=== PATIENT | male | born 1950 | race Caucasian/White ===

== ENCOUNTER 2018-10-12 13:34 | Inpatient (IN) | payer OTHER ==
[2018-10-12 16:15] VITALS: BMI 23.8
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
[2018-10-12] MEDS ORDERED: chlordiazePOXIDE HCL 25 MG CAPSULE PO PRN (17:18)
[2018-10-12] MEDS ORDERED: ALBUTEROL SO4 8 GM HFA INHALER IH PRN (17:20)
[2018-10-12] MEDS ORDERED: P-EPHED 60MG/TRIPROLIDI 2.5MG TABLET PO PRN (17:22)
[2018-10-12] MEDS ORDERED: hydrOXYzine PAMOATE 25 MG CAPSULE (FP) PO PRN (17:22)
[2018-10-12] MEDS ORDERED: ACETAMINOPHEN 325 MG TABLET (FP) PO PRN (17:22)
[2018-10-12] MEDS ORDERED: MAG HYDROX/AL HYDROX/SIMETH 30 ML UNIT-DOSE CUP PO PRN (17:22)
[2018-10-12] MEDS ORDERED: MAGNESIUM CITRATE 300 ML BOTTLE PO PRN (17:22)
[2018-10-12] MEDS ORDERED: LOPERAMIDE HCL 2 MG CAPSULE PO PRN (17:22)
[2018-10-12] MEDS ORDERED: MENTHOL/PHENOL 1 EACH UD MM PRN (17:22)
[2018-10-12] MEDS ORDERED: guaiFENesin/D-METHORPHAN HB 10 ML UNIT-DOSE CUPS PO PRN (17:22)
[2018-10-12] MEDS ORDERED: MAGNESIUM HYDROX 2400MG/30ML ORAL SUSPENSION 30 ML CUP PO PRN (17:22)
[2018-10-12] MEDS ORDERED: IBUPROFEN 400 MG TABLET (FP) PO PRN (17:22)
[2018-10-12] MEDS ORDERED: MELATONIN 5 MG TABLETS PO PRN (22:00)
[2018-10-12] MEDS: THIAMINE HCL 100 MG TABLET (FP) PO SCH (22:42)
[2018-10-12] MEDS: chlordiazePOXIDE HCL 25 MG CAPSULE PO SCH (22:43)
[2018-10-13] MEDS: chlordiazePOXIDE HCL 25 MG CAPSULE PO SCH ×3 (06:44→17:34)
[2018-10-13] MEDS: INSULIN SLIDING SCALE (NOVOLOG) 1 VIAL SQ SCH ×3 (06:48→17:08)
--- NOTE | 2018-10-13 10:10 | PN ---
S CIWA - CIWA Score Nausea/Vomitin-Mild Nausea/No Vomiting Muscle Tremors: 3 Anxiety: 2 Agitation: 2 Paroxysmal Sweats: 1-Minimal Palms Moist Orientation: 1-Uncertain about Date Tacttile Disturbances: 0-None Auditory Disturbances: 0-None Visual Disturbances: 0-None Headache: 2-Mild CIWA-Ar Total Score: 12 BHS Progress Note (SOAP) Subjective: tremor sweat restlessness anxiety irritable Objective: 10/13/18 14:32 Vital Signs Temperature 98.6 F 10/13/18 14:04 Pulse Rate 105 H 10/13/18 14:04 Respiratory Rate 18 10/13/18 14:04 Blood Pressure 113/72 10/13/18 14:04 O2 Sat by Pulse Oximetry (%) Laboratory Last Values POC Glucometer 95 UNITS (80-120) 10/13/18 06:45 lab noted Assessment: 10/13/18 14:32 withdrawal sx Plan: continue detox
[2018-10-13] MEDS: PRENATAL VITAMINS W/ FOLIC ACID TABLET (FP) PO SCH (10:56)
--- NOTE | 2018-10-13 18:58 | EKG ---
Test Reason : Blood Pressure : / mmHG Vent. Rate : 093 BPM Atrial Rate : 093 BPM P-R Int : 162 ms QRS Dur : 098 ms QT Int : 380 ms P-R-T Axes : 082 080 086 degrees QTc Int : 472 ms NORMAL SINUS RHYTHM NORMAL ECG NO PREVIOUS ECGS AVAILABLE Confirmed by ANDREW BAILEY, SHANEL ([id number]) on 10/13/2018 6:58:17 PM Referred By: Confirmed By:SHANEL MORALES MD
[2018-10-13] MEDS: THIAMINE HCL 100 MG TABLET (FP) PO SCH (22:41)
[2018-10-13] MEDS: chlordiazePOXIDE 5 MG CAPSULE PO SCH (22:41)
[2018-10-14] MEDS: chlordiazePOXIDE 5 MG CAPSULE PO SCH ×4 (06:34→22:28)
[2018-10-14] MEDS: INSULIN SLIDING SCALE (NOVOLOG) 1 VIAL SQ SCH ×3 (08:00→17:21)
[2018-10-14 10:13] LABS: HEMATOCRIT 42.5 % (35.4-49); HEMOGLOBIN 13.8 GM/dL (11.7-16.9); MCH 30.3 pg (25.7-33.7); MCHC 32.5 g/dl (32.0-35.9); MEAN PLT VOLUME 8.1 fl (7.5-11.1); PLATELET COUNT 299 K/MM3 (134-434); RBC 4.57 M/mm3 (4.00-5.60); RDW 17.1 % (11.9-15.9); WHITE BLOOD COUNT 8.6 K/mm3 (4.0-10.0)
[2018-10-14 10:38] LABS: ALBUMIN 3.3 g/dl (3.4-5.0); ALK PHOS 128 U/L (45-117); ANION GAP 9 MMOL/L (8-16); BILIRUBIN,TOTAL 0.8 mg/dL (0.2-1); BLOOD UREA NITROGEN 8 mg/dL (7-18); CALCIUM 8.5 mg/dL (8.5-10.1); CHLORIDE 99 mmol/L (98-107); CO2 29 mmol/L (21-32); CREATININE 0.7 mg/dL (0.55-1.3); GLUCOSE,RANDOM 114 mg/dL (74-106); POTASSIUM 3.8 mmol/L (3.5-5.1); SGOT/AST 43 U/L (15-37); SGPT/ALT 65 U/L (13-61); SODIUM 138 mmol/L (136-145); TOT PROT 7.1 g/dl (6.4-8.2)
[2018-10-14] MEDS: PRENATAL VITAMINS W/ FOLIC ACID TABLET (FP) PO SCH (11:33)
--- NOTE | 2018-10-14 11:55 | PN ---
S CIWA - CIWA Score Nausea/Vomitin-No Nausea/No Vomiting Muscle Tremors: 2 Anxiety: 2 Agitation: 2 Paroxysmal Sweats: 1-Minimal Palms Moist Orientation: 1-Uncertain about Date Tacttile Disturbances: 0-None Auditory Disturbances: 0-None Visual Disturbances: 0-None Headache: 2-Mild CIWA-Ar Total Score: 10 S Progress Note (SOAP) Subjective: feeling better than yesterday tremor sweat restlessness otherwise feeling ok Objective: 10/14/18 11:53 Vital Signs Temperature 98.5 F 10/14/18 09:26 Pulse Rate 96 H 10/14/18 09:26 Respiratory Rate 20 10/14/18 09:26 Blood Pressure 107/73 10/14/18 09:26 O2 Sat by Pulse Oximetry (%) Laboratory Last Values WBC 8.6 K/mm3 (4.0-10.0) 10/14/18 07:00 RBC 4.57 M/mm3 (4.00-5.60) 10/14/18 07:00 Hgb 13.8 GM/dL (11.7-16.9) 10/14/18 07:00 Hct 42.5 % (35.4-49) 10/14/18 07:00 MCV 93.0 fl (80-96) 10/14/18 07:00 MCH 30.3 pg (25.7-33.7) 10/14/18 07:00 MCHC 32.5 g/dl (32.0-35.9) 10/14/18 07:00 RDW 17.1 % (11.9-15.9) H 10/14/18 07:00 Plt Count 299 K/MM3 (134-434) D 10/14/18 07:00 MPV 8.1 fl (7.5-11.1) 10/14/18 07:00 Sodium 138 mmol/L (136-145) 10/14/18 07:00 Potassium 3.8 mmol/L (3.5-5.1) 10/14/18 07:00 Chloride 99 mmol/L (98-107) 10/14/18 07:00 Carbon Dioxide 29 mmol/L (21-32) 10/14/18 07:00 Anion Gap 9 MMOL/L (8-16) 10/14/18 07:00 BUN 8 mg/dL (7-18) 10/14/18 07:00 Creatinine 0.7 mg/dL (0.55-1.3) 10/14/18 07:00 Creat Clearance w eGFR > 60 (>60) 10/14/18 07:00 POC Glucometer 98 UNITS (80-120) 10/14/18 11:30 Random Glucose 114 mg/dL (74-106) H 10/14/18 07:00 Calcium 8.5 mg/dL (8.5-10.1) 10/14/18 07:00 Total Bilirubin 0.8 mg/dL (0.2-1) 10/14/18 07:00 AST 43 U/L (15-37) H 10/14/18 07:00 ALT 65 U/L (13-61) H 10/14/18 07:00 Alkaline Phosphatase 128 U/L (45-117) H 10/14/18 07:00 Total Protein 7.1 g/dl (6.4-8.2) 10/14/18 07:00 Albumin 3.3 g/dl (3.4-5.0) L 10/14/18 07:00 RPR Titer Nonreactive (NONREACTIVE) 10/14/18 07:00 lab noted 10/14/18 11:54 ua pending Assessment: 10/14/18 11:54 withdrawal sx Plan: continue detox
[2018-10-14] MEDS: THIAMINE HCL 100 MG TABLET (FP) PO SCH (22:28)
[2018-10-15] MEDS: INSULIN SLIDING SCALE (NOVOLOG) 1 VIAL SQ SCH (06:13)
[2018-10-15] MEDS: chlordiazePOXIDE 5 MG CAPSULE PO SCH (06:13)
[2018-10-15 06:34] VITALS: BP 136/84; PULSE 80; TEMP 97.2
--- NOTE | 2018-10-15 08:08 | PN ---
S Progress Note (SOAP) Subjective: alert,irritable,anxious interrupted sleep Objective: 10/15/18 08:07 Vital Signs Temperature 97.2 F L 10/15/18 06:34 Pulse Rate 80 10/15/18 06:34 Respiratory Rate 18 10/15/18 06:34 Blood Pressure 136/84 10/15/18 06:34 O2 Sat by Pulse Oximetry (%) Assessment: 10/15/18 08:08 withdrawal symptom Plan: continue detox
--- NOTE | 2018-10-15 08:11 | PN ---
[facility] Progress Note Note: patient did not want to complete treatment,seen by counselor,stated has to go home to pay the bill, all attempts to convince patient to stray with no avail,chance of relapsing is high,patient signed release ama, advise to go to er if any problem
--- NOTE | 2018-10-15 08:16 | DS ---
[facility] Detox Discharge Summary Admission Date: 10/12/18 Discharge Date: 10/15/18 - History Present History: Alcohol Dependence Additional Comments: patient signed release ama,seen by counselor,has all medications at home,follow up with pmd for medical problem, to er if emergency medical problem Pertinent Past History: asthma cad seizure - Physical Exam Results Vital Signs: Vital Signs Temperature 97.2 F L 10/15/18 06:34 Pulse Rate 80 10/15/18 06:34 Respiratory Rate 18 10/15/18 06:34 Blood Pressure 136/84 10/15/18 06:34 O2 Sat by Pulse Oximetry (%) Pertinent Admission Physical Exam Findings: Vital Signs Temperature 97.2 F L 10/15/18 06:34 Pulse Rate 80 10/15/18 06:34 Respiratory Rate 18 10/15/18 06:34 Blood Pressure 136/84 10/15/18 06:34 O2 Sat by Pulse Oximetry (%) Laboratory Last Values WBC 8.6 K/mm3 (4.0-10.0) 10/14/18 07:00 RBC 4.57 M/mm3 (4.00-5.60) 10/14/18 07:00 Hgb 13.8 GM/dL (11.7-16.9) 10/14/18 07:00 Hct 42.5 % (35.4-49) 10/14/18 07:00 MCV 93.0 fl (80-96) 10/14/18 07:00 MCH 30.3 pg (25.7-33.7) 10/14/18 07:00 MCHC 32.5 g/dl (32.0-35.9) 10/14/18 07:00 RDW 17.1 % (11.9-15.9) H 10/14/18 07:00 Plt Count 299 K/MM3 (134-434) D 10/14/18 07:00 MPV 8.1 fl (7.5-11.1) 10/14/18 07:00 Sodium 138 mmol/L (136-145) 10/14/18 07:00 Potassium 3.8 mmol/L (3.5-5.1) 10/14/18 07:00 Chloride 99 mmol/L (98-107) 10/14/18 07:00 Carbon Dioxide 29 mmol/L (21-32) 10/14/18 07:00 Anion Gap 9 MMOL/L (8-16) 10/14/18 07:00 BUN 8 mg/dL (7-18) 10/14/18 07:00 Creatinine 0.7 mg/dL (0.55-1.3) 10/14/18 07:00 Creat Clearance w eGFR > 60 (>60) 10/14/18 07:00 POC Glucometer 85 UNITS (80-120) 10/15/18 06:10 Random Glucose 114 mg/dL (74-106) H 10/14/18 07:00 Calcium 8.5 mg/dL (8.5-10.1) 10/14/18 07:00 Total Bilirubin 0.8 mg/dL (0.2-1) 10/14/18 07:00 AST 43 U/L (15-37) H 10/14/18 07:00 ALT 65 U/L (13-61) H 10/14/18 07:00 Alkaline Phosphatase 128 U/L (45-117) H 10/14/18 07:00 Total Protein 7.1 g/dl (6.4-8.2) 10/14/18 07:00 Albumin 3.3 g/dl (3.4-5.0) L 10/14/18 07:00 RPR Titer Nonreactive (NONREACTIVE) 10/14/18 07:00 - Treatment Patient has Accepted a Rehab Referral to: declined - Medication Discharge Medications: Ambulatory Orders Insulin (Novolog) [Novolog Flexpen] 0 units SQ BIDAC 10/26/13 Phenobarbital 50 mg PO DAILY 10/26/13 Phenytoin Na Extended [Dilantin -] 50 mg PO BID 10/26/13 Albuterol Sulfate Inhaler - [Ventolin Hfa Inhaler -] 2 inh PO Q4H PRN 10/12/18 - Diagnosis (1) Alcohol dependence with uncomplicated withdrawal Current Visit: Yes Status: Acute (2) Asthma Current Visit: Yes Status: Acute (3) CAD (coronary artery disease) Current Visit: Yes Status: Acute (4) Seizure Current Visit: No Status: Acute (5) Syncope Current Visit: No Status: Acute - AMA Did Patient Leave Against Medical Advice: Yes
[2018-10-15] MEDS ORDERED: chlordiazePOXIDE HCL 10 MG CAPSULE PO SCH ×2 (23:00)
== END 2018-10-15 08:30 | disposition left against medical advice (07) | DRG 770 ==
LOC: YASAS 13:34 → Y3N 19:09
PROC: HZ2ZZZZ Detoxification Services for Substance Abuse Treatment (ICD-10-PCS; principal; 2018-10-12)
DX: F10.230 Alcohol dependence with withdrawal, uncomplicated (principal); F17.210 Nicotine dependence, cigarettes, uncomplicated; J45.909 Unspecified asthma, uncomplicated; I25.10 Atherosclerotic heart disease of native coronary artery without angina pectoris; I25.2 Old myocardial infarction; E11.9 Type 2 diabetes mellitus without complications; Z86.69 Personal history of other diseases of the nervous system and sense organs; Z79.84 Long term (current) use of oral hypoglycemic drugs
CPT/HCPCS: 36415; 80053; 81003; 82962; 85027; 86593; 93005; 93010

== ENCOUNTER 2019-03-24 09:50 | Inpatient (IN) | payer OTHER ==
[2019-03-24 11:05] VITALS: BMI 22.1
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
[2019-03-24] MEDS ORDERED: METHOCARBAMOL 500 MG TABLET PO PRN (14:56)
[2019-03-24] MEDS ORDERED: hydrOXYzine PAMOATE 25 MG CAPSULE (FP) PO PRN (14:56)
[2019-03-24] MEDS ORDERED: MAG HYDROX/AL HYDROX/SIMETH 30 ML UNIT-DOSE CUP PO PRN (14:56)
[2019-03-24] MEDS ORDERED: MAGNESIUM HYDROX 2400MG/30ML ORAL SUSPENSION 30 ML CUP PO PRN (14:56)
[2019-03-24] MEDS ORDERED: MENTHOL/PHENOL 1 EACH UD MM PRN (14:56)
[2019-03-24] MEDS ORDERED: ACETAMINOPHEN 325 MG TABLET (FP) PO PRN ×2 (14:56)
[2019-03-24] MEDS ORDERED: BISMUTH SUBSALICYLATE 262 MG/15 ML BTL PO PRN (14:56)
[2019-03-24] MEDS ORDERED: MELATONIN 5 MG TABLETS PO PRN (14:56)
[2019-03-24] MEDS ORDERED: IBUPROFEN 400 MG TABLET (FP) PO PRN (14:56)
[2019-03-24] MEDS ORDERED: MAGNESIUM CITRATE 300 ML BOTTLE PO PRN (14:56)
[2019-03-24] MEDS ORDERED: chlordiazePOXIDE HCL 25 MG CAPSULE PO PRN (14:56)
[2019-03-24] MEDS: chlordiazePOXIDE HCL 25 MG CAPSULE PO SCH ×2 (16:00→22:57)
[2019-03-24 17:59] LABS: HEMATOCRIT 41.2 % (35.4-49); HEMOGLOBIN 13.7 GM/dL (11.7-16.9); MCH 30.7 pg (25.7-33.7); MCHC 33.2 g/dl (32.0-35.9); MEAN CELL VOLUME 92.3 fl (80-96); MEAN PLT VOLUME 8.1 fl (7.5-11.1); PLATELET COUNT 197 K/MM3 (134-434); RBC 4.46 M/mm3 (4.00-5.60); RDW 15.3 % (11.9-15.9); WHITE BLOOD COUNT 6.2 K/mm3 (4.0-10.0)
[2019-03-24 18:07] LABS: ALBUMIN 3.6 g/dl (3.4-5.0); CALCIUM 8.7 mg/dL (8.5-10.1); CREATININE 0.7 mg/dL (0.55-1.3); POTASSIUM 4.1 mmol/L (3.5-5.1); TOT PROT 7.5 g/dl (6.4-8.2)
[2019-03-24 18:11] LABS: EPI CELLS 1.4 /HPF (0-5/HPF); HYALINE CASTS 29 /lpf (0-8); PH,URINE 5.5 (5.0-8.0); URINE APPEARANCE CLOUDY; URINE BACTERIA 4.6 /hpf (NEGATIVE); URINE BILIRUBIN 2+ (NEGATIVE); URINE COLOR DK YELLOW; URINE GLUCOSE (UA) NEGATIVE (NEGATIVE); URINE KETONE TRACE (NEGATIVE); URINE LEUK ESTERASE 1+ (NEGATIVE); URINE NITRITE POSITIVE (NEGATIVE); URINE PROTEIN TRACE (NEGATIVE); URINE RBC 4 /hpf (0-4); URINE WBC 8 /hpf (0-5)
[2019-03-24 20:56] LABS: URINE CRYSTALS FEW CALCIUM OXALATE /hpf
[2019-03-24] MEDS: THIAMINE HCL 100 MG TABLET (FP) PO SCH (22:57)
[2019-03-24] MEDS: PHENYTOIN NA EXTENDED 100 MG CAPSULE (FP) PO SCH (22:57)
[2019-03-25] MEDS: ALBUTEROL SO4 8 GM HFA INHALER IH PRN ×2 (04:09→10:17)
[2019-03-25] MEDS: PHENYTOIN NA EXTENDED 100 MG CAPSULE (FP) PO SCH ×3 (05:32→22:34)
[2019-03-25] MEDS: chlordiazePOXIDE HCL 25 MG CAPSULE PO SCH ×4 (05:32→22:34)
[2019-03-25] MEDS: PRENATAL VITAMINS W/ FOLIC ACID TABLET (FP) PO SCH (10:16)
--- NOTE | 2019-03-25 14:20 | CONSULT ---
[facility] Psychiatric Consult - Data Date of interview: 03/25/19 Admission source: [facility] Identifying data: Readmission to [facility] for this 68 y/o male self- referred for detoxification (alcohol). Examined at [address] [place] [address]. Patient is , a father of one, domiciled, unemployed and supported on SSI benefits. Substance Abuse History: Confirmed by the patient in this interbview. Details in current [facility] report : Smoking history: Current every day smoker. Have you smoked in the past 12 months: Yes. Aproximately how many cigarettes per day: 2. Cigars Per Day: 0. Hx Chewing Tobacco Use: No. Initiated information on smoking cessation: Yes. 'Breaking Loose' booklet given: 03/24/19. - Substance & Tx. History. Hx Alcohol Use: Yes. Hx Substance Use: Yes. Substance Use Type : Marijuana, Tranquilizers. Hx Substance Use Treatment: Yes ([facility] 10/12/18 to ). - Substances abused. Alcohol. Substance route: Oral. Frequency: Daily. Amount used: 5 pints of vodka,gin,whisky/6 packs of 12 ozs of beer. Age of first use: 8. Date of last use: 03/24/19. Marijuana/Hashish. Substance route: Smoking. Frequency: 1-3 times last 30 days. Amount used: 50$ . Age of first use: 27. Date of last use: 03/21/19 Medical History: Remarkable for bronchial asthma, seizure disorder, diabetes mellitus, antecedent of myocrdial infarction, and history of surgeries ( appendectomy, cervical spine in 2012, excision of right shoulder cyst). Psychiatric History: Patient admits to a history of one psychiatric hospitalization ([facility]). Diagnosed with MDD and paranoid schizophrenia. Mr Woodson indicates that he is prescribed prozac (dose not recalled) and " another medication ". Patient gets his OPD services at the [facility] in [facility]. Denies history of suicide attempts. Physical/Sexual Abuse/Trauma History: Patient denies history of abuse. Additional Comment: Urine drug screen results: THC-Marijuana, BZO- Benzodiazepines. Noted. Mental Status Exam - Mental Status Exam Alert and Oriented to: Time, Place, Person Cognitive Function: Good Patient Appearance: Unkempt, Disheveled Mood: Nervous, Withdrawn, Apprehensive Affect: Mood Congruent, Constricted Patient Behavior: Fatigued, Appropriate, Cooperative Speech Pattern: Clear, Appropriate Voice Loudness: Normal Thought Process: Goal Oriented Thought Disorder: Not Present Hallucinations: Denies Suicidal Ideation: Denies Homicidal Ideation: Denies Insight/Judgement: Poor Sleep: Well Appetite: Good Muscle strength/Tone: Normal Gait/Station: Normal Psychiatric Findings - Problem List ([place] 1, 2,3) (1) Alcohol dependence with uncomplicated withdrawal Status: Acute (2) Cannabis abuse Status: Chronic (3) Nicotine dependence Status: Chronic (4) Paranoid schizophrenia Status: Chronic Comment: As per self-report. - Initial Treatment Plan Initial Treatment Plan: Psychoeducation. Records at [facility] : revisited. Sleep hygiene. AA meetings. MAT options for relapse prevention : discussed with the patient. Observation.
[2019-03-25] MEDS ORDERED: ONDANSETRON *ODT* 4 MG TABLET SL PRN (14:22)
[2019-03-25] MEDS ORDERED: cloNIDine HCL 0.1 MG TABLET PO ONE ×2 (14:26→19:00)
--- NOTE | 2019-03-25 14:28 | PN ---
S CIWA - CIWA Score Nausea/Vomitin Muscle Tremors: 3 Anxiety: 4-Mod. Anxious/Guarded Agitation: 3 Paroxysmal Sweats: No Perspiration Orientation: 0-Oriented Tacttile Disturbances: 0-None Auditory Disturbances: 0-None Visual Disturbances: 1-Very Mild Sensitivity Headache: 3-Moderate CIWA-Ar Total Score: 19 BHS Progress Note (SOAP) Subjective: Vomiting, Diarrhea, H/A, Fatigue, Tremors. Objective: PATIENT A & O X 2 (UNCERTAIN ABOUT CURRENT DAY / DATE). PATIENT OBSERVED AMBULATING ON UNIT UNASSISTED. IN NO ACUTE DISTRESS. 03/25/19 14:25 Vital Signs Temperature 96.8 F L 03/25/19 14:12 Pulse Rate 70 03/25/19 14:12 Respiratory Rate 18 03/25/19 14:12 Blood Pressure 145/86 03/25/19 14:12 O2 Sat by Pulse Oximetry (%) Laboratory Tests 03/24/19 03/24/19 03/24/19 15:00 15:04 15:10 WBC 6.2 RBC 4.46 Hgb 13.7 Hct 41.2 MCV 92.3 MCH 30.7 MCHC 33.2 RDW 15.3 D Plt Count 197 D MPV 8.1 Sodium Potassium Chloride Carbon Dioxide Anion Gap BUN Creatinine Est GFR (CKD-EPI)AfAm Est GFR (CKD-EPI)NonAf POC Glucometer 97 Random Glucose Calcium Total Bilirubin AST ALT Alkaline Phosphatase Total Protein Albumin Urine Color Dk yellow Urine Appearance Cloudy Urine pH 5.5 Ur Specific [place] 1.024 Urine Protein Trace Urine Glucose (UA) Negative Urine Ketones Trace H Urine Blood Negative Urine Nitrite Positive H Urine Bilirubin 2+ H Urine Urobilinogen 2.0 Ur Leukocyte Esterase 1+ H Urine WBC (Auto) 8 Urine RBC (Auto) 4 Urine Casts (Auto) 29 U Pathogenic Cast Auto None seen. U Epithel Cells (Auto) 1.4 Urine Crystals (Auto) Few calcium oxalate Urine Bacteria (Auto) 4.6 Phenytoin RPR Titer 03/24/19 03/24/19 03/24/19 15:10 15:10 15:10 WBC RBC Hgb Hct MCV MCH MCHC RDW Plt Count MPV Sodium 140 Potassium 4.1 Chloride 104 Carbon Dioxide 31 Anion Gap 5 L BUN 10.0 Creatinine 0.7 Est GFR (CKD-EPI)AfAm 113.98 Est GFR (CKD-EPI)NonAf 98.34 POC Glucometer Random Glucose 85 Calcium 8.7 Total Bilirubin 1.0 AST 59 H ALT 63 H Alkaline Phosphatase 105 Total Protein 7.5 Albumin 3.6 Urine Color Urine Appearance Urine pH Ur Specific [place] Urine Protein Urine Glucose (UA) Urine Ketones Urine Blood Urine Nitrite Urine Bilirubin Urine Urobilinogen Ur Leukocyte Esterase Urine WBC (Auto) Urine RBC (Auto) Urine Casts (Auto) U Pathogenic Cast Auto U Epithel Cells (Auto) Urine Crystals (Auto) Urine Bacteria (Auto) Phenytoin < 0.4 L RPR Titer Nonreactive 03/24/19 03/25/19 16:37 07:03 WBC RBC Hgb Hct MCV MCH MCHC RDW Plt Count MPV Sodium Potassium Chloride Carbon Dioxide Anion Gap BUN Creatinine Est GFR (CKD-EPI)AfAm Est GFR (CKD-EPI)NonAf POC Glucometer 107 107 Random Glucose Calcium Total Bilirubin AST ALT Alkaline Phosphatase Total Protein Albumin Urine Color Urine Appearance Urine pH Ur Specific [place] Urine Protein Urine Glucose (UA) Urine Ketones Urine Blood Urine Nitrite Urine Bilirubin Urine Urobilinogen Ur Leukocyte Esterase Urine WBC (Auto) Urine RBC (Auto) Urine Casts (Auto) U Pathogenic Cast Auto U Epithel Cells (Auto) Urine Crystals (Auto) Urine Bacteria (Auto) Phenytoin RPR Titer LABS NOTED. Assessment: 03/25/19 14:28 WITHDRAWAL SYMPTOMS. ELEVATED BLOOD PRESSURE READING. ELEVATED LIVER ENZYMES (AST, ALT). 03/25/19 14:29 Plan: CONTINUE DETOX. INCREASE DAILY PO FLUID / WATER INTAKE. REPEAT UA FOR ADMISSION ABNORMALITIES. CLONIDINE, 0.1 MG PO X 1 DOSE FOR SEVERE WITHDRAWAL SYMPTOMS AND FOR ELEVATED BP ON EARLY AFTERNOON READING.
[2019-03-25] MEDS: THIAMINE HCL 100 MG TABLET (FP) PO SCH (22:34)
[2019-03-26] MEDS: PHENYTOIN NA EXTENDED 100 MG CAPSULE (FP) PO SCH ×3 (05:55→22:20)
[2019-03-26] MEDS: chlordiazePOXIDE HCL 25 MG CAPSULE PO SCH ×2 (05:55→11:23)
[2019-03-26] MEDS: PRENATAL VITAMINS W/ FOLIC ACID TABLET (FP) PO SCH (11:23)
--- NOTE | 2019-03-26 13:07 | PN ---
S CIWA - CIWA Score Nausea/Vomitin-No Nausea/No Vomiting Muscle Tremors: 2 Anxiety: 2 Agitation: 2 Paroxysmal Sweats: 2 Orientation: 0-Oriented Tacttile Disturbances: 0-None Auditory Disturbances: 0-None Visual Disturbances: 0-None Headache: 2-Mild CIWA-Ar Total Score: 10 S Progress Note (SOAP) Subjective: c/o headache, sweats, anxiety, and shakes. Objective: 03/26/19 13:06 Vital Signs 03/26/19 03/26/19 06:27 09:43 Temperature 97.7 F 97.6 F Pulse Rate 77 76 Respiratory 18 18 Rate Blood Pressure 117/67 121/83 Lab Results WBC 6.2 K/mm3 (4.0-10.0) 03/24/19 15:10 RBC 4.46 M/mm3 (4.00-5.60) 03/24/19 15:10 Hgb 13.7 GM/dL (11.7-16.9) 03/24/19 15:10 Hct 41.2 % (35.4-49) 03/24/19 15:10 MCV 92.3 fl (80-96) 03/24/19 15:10 MCHC 33.2 g/dl (32.0-35.9) 03/24/19 15:10 RDW 15.3 % (11.9-15.9) D 03/24/19 15:10 Plt Count 197 K/MM3 (134-434) D 03/24/19 15:10 Sodium 140 mmol/L (136-145) 03/24/19 15:10 Potassium 4.1 mmol/L (3.5-5.1) 03/24/19 15:10 Chloride 104 mmol/L (98-107) 03/24/19 15:10 Carbon Dioxide 31 mmol/L (21-32) 03/24/19 15:10 Anion Gap 5 MMOL/L (8-16) L 03/24/19 15:10 BUN 10.0 mg/dL (7-18) 03/24/19 15:10 Creatinine 0.7 mg/dL (0.55-1.3) 03/24/19 15:10 Random Glucose 85 mg/dL (74-106) 03/24/19 15:10 Calcium 8.7 mg/dL (8.5-10.1) 03/24/19 15:10 Labs noted. Assessment: 03/26/19 13:07 AOX3, in no acute distress Full ROM, ambulating in the unit. Withdrawal symptoms. Plan: continue detox.
[2019-03-26] MEDS ORDERED: chlordiazePOXIDE HCL 10 MG CAPSULE PO PRN (17:00)
[2019-03-26] MEDS: chlordiazePOXIDE HCL 10 MG CAPSULE PO SCH ×2 (17:55→22:20)
[2019-03-26] MEDS: THIAMINE HCL 100 MG TABLET (FP) PO SCH (22:20)
[2019-03-27] MEDS: PHENYTOIN NA EXTENDED 100 MG CAPSULE (FP) PO SCH ×3 (06:08→22:19)
[2019-03-27] MEDS: chlordiazePOXIDE HCL 10 MG CAPSULE PO SCH ×3 (06:10→22:20)
[2019-03-27] MEDS: PRENATAL VITAMINS W/ FOLIC ACID TABLET (FP) PO SCH (10:32)
--- NOTE | 2019-03-27 14:33 | PN ---
S CIWA - CIWA Score Nausea/Vomitin Muscle Tremors: 2 Anxiety: 1-Mildly Anxious Agitation: 1-Slight > Activity Paroxysmal Sweats: 1-Minimal Palms Moist Orientation: 0-Oriented Tacttile Disturbances: 0-None Auditory Disturbances: 1-Very Mild Visual Disturbances: 0-None Headache: 1-Very Mild CIWA-Ar Total Score: 9 BHS Progress Note (SOAP) Subjective: poor sleep, shakiness, anxiety Objective: Vital Signs - 24 hr 03/26/19 03/26/19 03/27/19 18:18 21:53 00:30 Temperature 98.5 F 98.3 F Pulse Rate 84 86 Respiratory 18 18 18 Rate Blood Pressure 114/76 135/80 03/27/19 03/27/19 03/27/19 06:49 09:12 13:16 Temperature 98.2 F 96.8 F L 97.6 F Pulse Rate 68 73 79 Respiratory 18 18 16 Rate Blood Pressure 134/80 122/74 129/79 Laboratory Tests 03/24/19 03/24/19 03/24/19 15:00 15:04 15:10 WBC 6.2 RBC 4.46 Hgb 13.7 Hct 41.2 MCV 92.3 MCH 30.7 MCHC 33.2 RDW 15.3 D Plt Count 197 D MPV 8.1 Sodium Potassium Chloride Carbon Dioxide Anion Gap BUN Creatinine Est GFR (CKD-EPI)AfAm Est GFR (CKD-EPI)NonAf POC Glucometer 97 Random Glucose Calcium Total Bilirubin AST ALT Alkaline Phosphatase Total Protein Albumin Urine Color Dk yellow Urine Appearance Cloudy Urine pH 5.5 Ur Specific [place] 1.024 Urine Protein Trace Urine Glucose (UA) Negative Urine Ketones Trace H Urine Blood Negative Urine Nitrite Positive H Urine Bilirubin 2+ H Urine Urobilinogen 2.0 Ur Leukocyte Esterase 1+ H Urine WBC (Auto) 8 Urine RBC (Auto) 4 Urine Casts (Auto) 29 U Pathogenic Cast Auto None seen. U Epithel Cells (Auto) 1.4 Urine Crystals (Auto) Few calcium oxalate Urine Bacteria (Auto) 4.6 Phenytoin RPR Titer 03/24/19 03/24/19 03/24/19 15:10 15:10 15:10 WBC RBC Hgb Hct MCV MCH MCHC RDW Plt Count MPV Sodium 140 Potassium 4.1 Chloride 104 Carbon Dioxide 31 Anion Gap 5 L BUN 10.0 Creatinine 0.7 Est GFR (CKD-EPI)AfAm 113.98 Est GFR (CKD-EPI)NonAf 98.34 POC Glucometer Random Glucose 85 Calcium 8.7 Total Bilirubin 1.0 AST 59 H ALT 63 H Alkaline Phosphatase 105 Total Protein 7.5 Albumin 3.6 Urine Color Urine Appearance Urine pH Ur Specific [place] Urine Protein Urine Glucose (UA) Urine Ketones Urine Blood Urine Nitrite Urine Bilirubin Urine Urobilinogen Ur Leukocyte Esterase Urine WBC (Auto) Urine RBC (Auto) Urine Casts (Auto) U Pathogenic Cast Auto U Epithel Cells (Auto) Urine Crystals (Auto) Urine Bacteria (Auto) Phenytoin < 0.4 L RPR Titer Nonreactive 03/24/19 03/25/19 03/26/19 16:37 07:03 07:08 WBC RBC Hgb Hct MCV MCH MCHC RDW Plt Count MPV Sodium Potassium Chloride Carbon Dioxide Anion Gap BUN Creatinine Est GFR (CKD-EPI)AfAm Est GFR (CKD-EPI)NonAf POC Glucometer 107 107 92 Random Glucose Calcium Total Bilirubin AST ALT Alkaline Phosphatase Total Protein Albumin Urine Color Urine Appearance Urine pH Ur Specific [place] Urine Protein Urine Glucose (UA) Urine Ketones Urine Blood Urine Nitrite Urine Bilirubin Urine Urobilinogen Ur Leukocyte Esterase Urine WBC (Auto) Urine RBC (Auto) Urine Casts (Auto) U Pathogenic Cast Auto U Epithel Cells (Auto) Urine Crystals (Auto) Urine Bacteria (Auto) Phenytoin RPR Titer 03/26/19 03/27/19 16:52 06:07 WBC RBC Hgb Hct MCV MCH MCHC RDW Plt Count MPV Sodium Potassium Chloride Carbon Dioxide Anion Gap BUN Creatinine Est GFR (CKD-EPI)AfAm Est GFR (CKD-EPI)NonAf POC Glucometer 108 82 Random Glucose Calcium Total Bilirubin AST ALT Alkaline Phosphatase Total Protein Albumin Urine Color Urine Appearance Urine pH Ur Specific [place] Urine Protein Urine Glucose (UA) Urine Ketones Urine Blood Urine Nitrite Urine Bilirubin Urine Urobilinogen Ur Leukocyte Esterase Urine WBC (Auto) Urine RBC (Auto) Urine Casts (Auto) U Pathogenic Cast Auto U Epithel Cells (Auto) Urine Crystals (Auto) Urine Bacteria (Auto) Phenytoin RPR Titer 03/27/19 14:36 ALERT ORIENTED AMBULATORY Assessment: 03/27/19 14:36 WITHDRAWAL UA+ LEUK/NITRATE ASX Plan: REPEAT UA MONITOR VS CONTINUE DETOX PROTOCOL
[2019-03-27] MEDS: THIAMINE HCL 100 MG TABLET (FP) PO SCH (22:19)
[2019-03-27 22:30] LABS: PH,URINE 7.5 (5.0-8.0); URINE APPEARANCE CLEAR; URINE BILIRUBIN NEGATIVE (NEGATIVE); URINE COLOR YELLOW; URINE GLUCOSE (UA) NEGATIVE (NEGATIVE); URINE KETONE NEGATIVE (NEGATIVE); URINE LEUK ESTERASE 1+ (NEGATIVE); URINE NITRITE NEGATIVE (NEGATIVE); URINE PROTEIN NEGATIVE (NEGATIVE)
[2019-03-27 23:03] LABS: URINE RBC 0 /hpf (0-4)
[2019-03-27 23:04] LABS: URINE BACTERIA MODERATE /hpf (NEGATIVE)
[2019-03-28] MEDS: PHENYTOIN NA EXTENDED 100 MG CAPSULE (FP) PO SCH (05:14)
[2019-03-28] MEDS: chlordiazePOXIDE HCL 10 MG CAPSULE PO SCH (05:14)
[2019-03-28 09:42] VITALS: BP 136/80; PULSE 81; TEMP 97
[2019-03-28] MEDS: PRENATAL VITAMINS W/ FOLIC ACID TABLET (FP) PO SCH (10:24)
[2019-03-28] MEDS: ALBUTEROL SO4 8 GM HFA INHALER IH PRN (10:26)
--- NOTE | 2019-03-28 13:28 | DS ---
[facility] Detox Discharge Summary Admission Date: 03/24/19 Discharge Date: 03/28/19 - History Present History: Alcohol Dependence Additional Comments: PATIENT GOING TO [facility] ([facility]) FOR AFTERCARE. PATIENT WAS DISCHARGED FROM DETOX UNIT TO BE TAKEN OVER TO REHAB UNIT IN STABLE MEDICAL CONDITION. Pertinent Past History: Asthma, Paranoid Schizophrenia, History Of Seizures, Coronary Artery Disease, History Of Syncope, Type II DM, HTN, Depression, Nicotine Dependence. - Physical Exam Results Vital Signs: Vital Signs Temperature 97.0 F L 03/28/19 09:41 Pulse Rate 81 03/28/19 09:41 Respiratory Rate 18 03/28/19 09:41 Blood Pressure 136/80 03/28/19 09:41 O2 Sat by Pulse Oximetry (%) Pertinent Admission Physical Exam Findings: WITHDRAWAL SYMPTOMS. Laboratory Tests 03/24/19 03/24/19 03/24/19 15:00 15:04 15:10 WBC 6.2 RBC 4.46 Hgb 13.7 Hct 41.2 MCV 92.3 MCH 30.7 MCHC 33.2 RDW 15.3 D Plt Count 197 D MPV 8.1 Sodium Potassium Chloride Carbon Dioxide Anion Gap BUN Creatinine Est GFR (CKD-EPI)AfAm Est GFR (CKD-EPI)NonAf POC Glucometer 97 Random Glucose Calcium Total Bilirubin AST ALT Alkaline Phosphatase Total Protein Albumin Urine Color Dk yellow Urine Appearance Cloudy Urine pH 5.5 Ur Specific [place] 1.024 Urine Protein Trace Urine Glucose (UA) Negative Urine Ketones Trace H Urine Blood Negative Urine Nitrite Positive H Urine Bilirubin 2+ H Urine Urobilinogen 2.0 Ur Leukocyte Esterase 1+ H Urine WBC (Auto) 8 Urine RBC (Auto) 4 Urine Casts (Auto) 29 U Pathogenic Cast Auto None seen. U Epithel Cells (Auto) 1.4 Urine Crystals (Auto) Few calcium oxalate Urine Bacteria (Auto) 4.6 Phenytoin RPR Titer 03/24/19 03/24/19 03/24/19 15:10 15:10 15:10 WBC RBC Hgb Hct MCV MCH MCHC RDW Plt Count MPV Sodium 140 Potassium 4.1 Chloride 104 Carbon Dioxide 31 Anion Gap 5 L BUN 10.0 Creatinine 0.7 Est GFR (CKD-EPI)AfAm 113.98 Est GFR (CKD-EPI)NonAf 98.34 POC Glucometer Random Glucose 85 Calcium 8.7 Total Bilirubin 1.0 AST 59 H ALT 63 H Alkaline Phosphatase 105 Total Protein 7.5 Albumin 3.6 Urine Color Urine Appearance Urine pH Ur Specific [place] Urine Protein Urine Glucose (UA) Urine Ketones Urine Blood Urine Nitrite Urine Bilirubin Urine Urobilinogen Ur Leukocyte Esterase Urine WBC (Auto) Urine RBC (Auto) Urine Casts (Auto) U Pathogenic Cast Auto U Epithel Cells (Auto) Urine Crystals (Auto) Urine Bacteria (Auto) Phenytoin < 0.4 L RPR Titer Nonreactive 03/24/19 03/25/19 03/26/19 16:37 07:03 07:08 WBC RBC Hgb Hct MCV MCH MCHC RDW Plt Count MPV Sodium Potassium Chloride Carbon Dioxide Anion Gap BUN Creatinine Est GFR (CKD-EPI)AfAm Est GFR (CKD-EPI)NonAf POC Glucometer 107 107 92 Random Glucose Calcium Total Bilirubin AST ALT Alkaline Phosphatase Total Protein Albumin Urine Color Urine Appearance Urine pH Ur Specific [place] Urine Protein Urine Glucose (UA) Urine Ketones Urine Blood Urine Nitrite Urine Bilirubin Urine Urobilinogen Ur Leukocyte Esterase Urine WBC (Auto) Urine RBC (Auto) Urine Casts (Auto) U Pathogenic Cast Auto U Epithel Cells (Auto) Urine Crystals (Auto) Urine Bacteria (Auto) Phenytoin RPR Titer 03/26/19 03/27/19 03/27/19 16:52 06:07 16:00 WBC RBC Hgb Hct MCV MCH MCHC RDW Plt Count MPV Sodium Potassium Chloride Carbon Dioxide Anion Gap BUN Creatinine Est GFR (CKD-EPI)AfAm Est GFR (CKD-EPI)NonAf POC Glucometer 108 82 Random Glucose Calcium Total Bilirubin AST ALT Alkaline Phosphatase Total Protein Albumin Urine Color Yellow Urine Appearance Clear Urine pH 7.5 D Ur Specific [place] 1.017 Urine Protein Negative Urine Glucose (UA) Negative Urine Ketones Negative Urine Blood Negative Urine Nitrite Negative Urine Bilirubin Negative Urine Urobilinogen 1.0 Ur Leukocyte Esterase 1+ H Urine WBC (Auto) 2-5 Urine RBC (Auto) 0 Urine Casts (Auto) None U Pathogenic Cast Auto U Epithel Cells (Auto) None Urine Crystals (Auto) Urine Bacteria (Auto) Moderate Phenytoin RPR Titer 03/27/19 03/28/19 16:42 05:12 WBC RBC Hgb Hct MCV MCH MCHC RDW Plt Count MPV Sodium Potassium Chloride Carbon Dioxide Anion Gap BUN Creatinine Est GFR (CKD-EPI)AfAm Est GFR (CKD-EPI)NonAf POC Glucometer 98 87 Random Glucose Calcium Total Bilirubin AST ALT Alkaline Phosphatase Total Protein Albumin Urine Color Urine Appearance Urine pH Ur Specific [place] Urine Protein Urine Glucose (UA) Urine Ketones Urine Blood Urine Nitrite Urine Bilirubin Urine Urobilinogen Ur Leukocyte Esterase Urine WBC (Auto) Urine RBC (Auto) Urine Casts (Auto) U Pathogenic Cast Auto U Epithel Cells (Auto) Urine Crystals (Auto) Urine Bacteria (Auto) Phenytoin RPR Titer LABS NOTED. - Treatment Hospital Course: Detox Protocol Followed, Detoxed Safely, Responded well, Discharged Condition Good, Rehab Referral Accepted Patient has Accepted a Rehab Referral to: [facility] ([place], [place]). - Medication Discharge Medications: Ambulatory Orders Insulin (Novolog) [Novolog Flexpen -] 0 units SQ BIDAC 10/26/13 Phenobarbital 50 mg PO DAILY 10/26/13 Phenytoin Na Extended [Dilantin -] 50 mg PO BID 10/26/13 Albuterol Sulfate Inhaler - [Ventolin HFA Inhaler -] 2 puff IH Q4H PRN inhaler 10/15/18 - Diagnosis (1) Alcohol dependence with uncomplicated withdrawal Status: Acute (2) Asthma Status: Acute Qualifiers: Asthma severity: unspecified severity Asthma persistence: unspecified Asthma complication type: uncomplicated Qualified Code(s): J45.909 - Unspecified asthma, uncomplicated (3) CAD (coronary artery disease) Status: Acute Qualifiers: Coronary Disease-Associated Artery/Lesion type: unspecified vessel or lesion type [place] vs. transplanted heart: unspecified whether [place] or transplanted heart Associated angina: angina presence unspecified Qualified Code(s): I25.10 - Atherosclerotic heart disease of [place] coronary artery without angina pectoris (4) DM Diabetes mellitus type 2 Status: Chronic (5) Seizure Status: Chronic (6) Syncope Status: Acute (7) Paranoid schizophrenia Status: Chronic - AMA Did Patient Leave Against Medical Advice: No
== END 2019-03-28 13:11 | disposition other institution (70) | DRG 775 ==
LOC: YASAS 09:50 → Y3N 14:56
PROVIDERS: ADMIT Surgery; ATTEND Surgery
PROC: HZ2ZZZZ Detoxification Services for Substance Abuse Treatment (ICD-10-PCS; principal; 2019-03-24)
DX: F10.20 Alcohol dependence, uncomplicated (principal); F12.10 Cannabis abuse, uncomplicated; F17.210 Nicotine dependence, cigarettes, uncomplicated; F20.0 Paranoid schizophrenia; F32.9 Major depressive disorder, single episode, unspecified; I25.10 Atherosclerotic heart disease of native coronary artery without angina pectoris; I10 Essential (primary) hypertension; I25.2 Old myocardial infarction; Z79.4 Long term (current) use of insulin; J45.909 Unspecified asthma, uncomplicated; R55 Syncope and collapse; G40.909 Epilepsy, unspecified, not intractable, without status epilepticus; R94.5 Abnormal results of liver function studies; R82.998 Other abnormal findings in urine
CPT/HCPCS: 36415; 80053; 80185; 81003; 82962; 85027; 86593; J0735

== ENCOUNTER 2019-03-28 13:10 | Inpatient (IN) | payer OTHER ==
[2019-03-28] MEDS ORDERED: MAGNESIUM HYDROX 2400MG/30ML ORAL SUSPENSION 30 ML CUP PO PRN (13:34)
[2019-03-28] MEDS ORDERED: P-EPHED 60MG/TRIPROLIDI 2.5MG TABLET PO PRN (13:34)
[2019-03-28] MEDS ORDERED: ACETAMINOPHEN 325 MG TABLET (FP) PO PRN (13:34)
[2019-03-28] MEDS ORDERED: MAG HYDROX/AL HYDROX/SIMETH 30 ML UNIT-DOSE CUP PO PRN (13:34)
[2019-03-28] MEDS ORDERED: guaiFENesin 200 MG/10 ML 10 ML UNIT-DOSE CUPS PO PRN (13:34)
[2019-03-28] MEDS ORDERED: LOPERAMIDE HCL 2 MG CAPSULE PO PRN (13:34)
[2019-03-28] MEDS ORDERED: MAGNESIUM CITRATE 300 ML BOTTLE PO PRN (13:34)
[2019-03-28] MEDS ORDERED: MENTHOL/PHENOL 1 EACH UD MM PRN (13:34)
[2019-03-28] MEDS ORDERED: ALBUTEROL SO4 8 GM HFA INHALER IH PRN (13:35)
--- NOTE | 2019-03-28 13:40 | HP ---
[facility] Rehab Assess/Revision - Admission History Admitted to Rehab from: [facility] Date of Admission to Rehab: 03/28/2019 - Vital signs Vital Signs: NOTED; STABLE. - Findings Detox History & Physical reviewed: Yes Concur with findings: Yes Comments/Additional Findings: PATIENT'S MEDICAL / MEDICATION HISTORY REVIEWED PRIOR TO DISCHARGE FROM DETOX UNIT. PATIENT WAS DISCHARGED FROM DETOX UNIT TO BE TAKEN OVER TO REHAB UNIT IN STABLE MEDICAL CONDITION. Inpatient Rehab Admission - Rehab Decision to Admit Inpatient rehab admission?: Yes - Initial Determination Are CD services needed?: Yes Free of communicable disease: Yes Not in need of hospitalization: Yes - Rehab Admission Criteria Previous failed treatment: Yes Poor recovery environment: Yes Comorbidities: Yes Lacks judgement: Yes Patient is meeting Inpatient Rehab admission criteria:: Yes
[2019-03-28] MEDS: PHENYTOIN NA EXTENDED 100 MG CAPSULE (FP) PO SCH ×2 (15:33→21:51)
[2019-03-28] MEDS: THIAMINE HCL 100 MG TABLET (FP) PO SCH (21:51)
[2019-03-28] MEDS ORDERED: MELATONIN 5 MG TABLETS PO PRN (22:00)
[2019-03-29] MEDS: PHENYTOIN NA EXTENDED 100 MG CAPSULE (FP) PO SCH ×3 (06:13→22:07)
[2019-03-29] MEDS: PRENATAL VITAMINS W/ FOLIC ACID TABLET (FP) PO SCH (10:57)
[2019-03-29] MEDS: THIAMINE HCL 100 MG TABLET (FP) PO SCH (22:07)
[2019-03-30 06:47] VITALS: BP 149/91; PULSE 79; TEMP 97.8
[2019-03-30] MEDS: PHENYTOIN NA EXTENDED 100 MG CAPSULE (FP) PO SCH (07:12)
[2019-03-30] MEDS: PRENATAL VITAMINS W/ FOLIC ACID TABLET (FP) PO SCH (09:37)
--- NOTE | 2019-03-30 11:54 | PN ---
[facility] Progress Note (SOAP) Subjective: MR BAIG DECLINED TO CONTINUE WITH REHAB FOR PERSONAL REASONS STATING TO STAFF , "MY IS HERE TO PICK ME UP, I NEED TO LEAVE NOW". PT DECLINED TO BE FURTHER ENGAGED IN TREATMENT. PT MET WITH COUNSELOR HAZEL ELLIS AND HAS BEEN REFERRED TO [facility] FOR CD AFTERCARE. PT REPORTS HE HAS A PRIMARY CARE PROVIDER DR. BENJAMIN AT [facility] WHO HE SEES EVERY 3 MONTHS. REPORTS HE HAS ALL HIS MEDICATIONS FOR 3-4 MONTHS. PT ALSO STATES HIS NEXT APPOINTMENT IS 05/20/19 AT 9 A.M. PT IS ALERT O X 3. DENIES S/H/I. Objective: 03/30/19 11:54 Vital Signs - 24 hr 03/30/19 03/30/19 03/30/19 00:30 03:30 06:47 Temperature 97.8 F Pulse Rate 79 Respiratory 18 18 16 Rate Blood Pressure 149/91 Laboratory Tests 03/29/19 03/30/19 06:12 07:11 POC Glucometer 89 83 Assessment: 03/30/19 11:54 NAD Plan: PT SIGNED OUT AMA FOLLOW UP WITH CD AFTERCARE RECOMMENDATION FOLLOW UP WITH PCP DR. BENJAMIN FOR APPOINTMENT ON 05/20/19 SCHEDULED.
== END 2019-03-30 09:45 | disposition left against medical advice (07) | DRG 770 ==
LOC: YASAS 13:10 → Y5N 13:11
PROVIDERS: ADMIT Neuromusculoskeletal Medicine & OMM; ATTEND Neuromusculoskeletal Medicine & OMM
PROC: HZ42ZZZ Group Counseling for Substance Abuse Treatment, Cognitive-Behavioral (ICD-10-PCS; principal; 2019-03-28)
DX: F10.20 Alcohol dependence, uncomplicated (principal); F12.10 Cannabis abuse, uncomplicated; F17.210 Nicotine dependence, cigarettes, uncomplicated; J45.909 Unspecified asthma, uncomplicated; I25.10 Atherosclerotic heart disease of native coronary artery without angina pectoris; E11.9 Type 2 diabetes mellitus without complications; G40.909 Epilepsy, unspecified, not intractable, without status epilepticus; Z91.013 Allergy to seafood
CPT/HCPCS: 82962

== ENCOUNTER 2019-03-31 20:27 | Inpatient (IN) | payer OTHER ==
[2019-03-31 22:52] VITALS: BMI 23.6
--- NOTE | 2019-03-31 23:06 | HP ---
[facility] Rehab Assess/Revision - Admission History Admitted to Rehab from: [facility] Date of Admission to Rehab: 03/31/2019 - Vital signs Vital Signs: Vital Signs Period Temp Pulse Resp BP Sys/Connelly Pulse Ox Last 24 Hr 97.9 F 93 20 139/78 - Findings Detox History & Physical reviewed: Yes Concur with findings: Yes Comments/Additional Findings: CLIENT SIGNED OUT OF REHAB AFTER 2 DAYS ON 2018 TO ATTEND DAUGHTER GRADUATION TODAY. HE REPORTS RELAPSING DRINKING A PINT EARLIER TODAY. DENIES ALCOHOL USE YESWTERDAY. HE IS A/O X3 NAD OR WITHDRAWAL SX 'S PRESENT. CLIENT COMPLETED DETOX WHILE HERE ON LAST ADMISSION, VSS BRANDI 0. WILL READMIT TO REHAB GIVEN HIS RECENT RELAPSE FOR CONTINUATION OF TXMENT. Inpatient Rehab Admission - Rehab Decision to Admit Inpatient rehab admission?: Yes - Initial Determination Are CD services needed?: Yes Free of communicable disease: Yes Not in need of hospitalization: Yes - Rehab Admission Criteria Previous failed treatment: Yes Poor recovery environment: Yes Comorbidities: Yes Lacks judgement: No Patient is meeting Inpatient Rehab admission criteria:: Yes
[2019-03-31] MEDS ORDERED: LOPERAMIDE HCL 2 MG CAPSULE PO PRN (23:08)
[2019-03-31] MEDS ORDERED: MENTHOL/PHENOL 1 EACH UD MM PRN (23:08)
[2019-03-31] MEDS ORDERED: ALBUTEROL SO4 8 GM HFA INHALER IH PRN (23:08)
[2019-03-31] MEDS ORDERED: IBUPROFEN 400 MG TABLET (FP) PO PRN (23:08)
[2019-03-31] MEDS ORDERED: P-EPHED 60MG/TRIPROLIDI 2.5MG TABLET PO PRN (23:08)
[2019-03-31] MEDS ORDERED: NICOTINE POLACRILEX 2 MG GUM BUC PRN (23:08)
[2019-03-31] MEDS ORDERED: ACETAMINOPHEN 325 MG TABLET (FP) PO PRN (23:08)
[2019-03-31] MEDS ORDERED: MAGNESIUM HYDROX 2400MG/30ML ORAL SUSPENSION 30 ML CUP PO PRN (23:08)
[2019-03-31] MEDS ORDERED: MAG HYDROX/AL HYDROX/SIMETH 30 ML UNIT-DOSE CUP PO PRN (23:08)
[2019-03-31] MEDS ORDERED: MAGNESIUM CITRATE 300 ML BOTTLE PO PRN (23:08)
[2019-03-31] MEDS ORDERED: guaiFENesin 200 MG/10 ML 10 ML UNIT-DOSE CUPS PO PRN (23:08)
[2019-04-01] MEDS: PHENYTOIN NA EXTENDED 100 MG CAPSULE (FP) PO SCH ×3 (06:54→21:42)
[2019-04-01] MEDS: metFORMIN HCL 500 MG TABLET (FP) PO SCH ×2 (06:54→17:02)
[2019-04-01] MEDS: PRENATAL VITAMINS W/ FOLIC ACID TABLET (FP) PO SCH (09:53)
[2019-04-01] MEDS: NICOTINE 14 MG/24 HOURS TOPICAL PATCH TD SCH (09:54)
[2019-04-01] MEDS: THIAMINE HCL 100 MG TABLET (FP) PO SCH (21:42)
[2019-04-01] MEDS: MELATONIN 5 MG TABLETS PO PRN (21:42)
[2019-04-02] MEDS: metFORMIN HCL 500 MG TABLET (FP) PO SCH ×2 (06:39→16:53)
[2019-04-02] MEDS: PHENYTOIN NA EXTENDED 100 MG CAPSULE (FP) PO SCH ×3 (06:39→23:48)
[2019-04-02] MEDS: PRENATAL VITAMINS W/ FOLIC ACID TABLET (FP) PO SCH (10:44)
[2019-04-02] MEDS: NICOTINE 14 MG/24 HOURS TOPICAL PATCH TD SCH (10:44)
[2019-04-02] MEDS: THIAMINE HCL 100 MG TABLET (FP) PO SCH (23:48)
[2019-04-03] MEDS: PHENYTOIN NA EXTENDED 100 MG CAPSULE (FP) PO SCH ×3 (06:40→22:20)
[2019-04-03] MEDS: metFORMIN HCL 500 MG TABLET (FP) PO SCH ×2 (06:40→16:43)
[2019-04-03] MEDS: PRENATAL VITAMINS W/ FOLIC ACID TABLET (FP) PO SCH (10:24)
[2019-04-03] MEDS: NICOTINE 14 MG/24 HOURS TOPICAL PATCH TD SCH (10:24)
[2019-04-03] MEDS: MELATONIN 5 MG TABLETS PO PRN (22:20)
[2019-04-03] MEDS: THIAMINE HCL 100 MG TABLET (FP) PO SCH (22:20)
[2019-04-04] MEDS: PHENYTOIN NA EXTENDED 100 MG CAPSULE (FP) PO SCH ×3 (06:03→21:55)
[2019-04-04] MEDS: metFORMIN HCL 500 MG TABLET (FP) PO SCH ×2 (06:03→16:44)
[2019-04-04] MEDS: NICOTINE 14 MG/24 HOURS TOPICAL PATCH TD SCH (10:24)
[2019-04-04] MEDS: PRENATAL VITAMINS W/ FOLIC ACID TABLET (FP) PO SCH (10:24)
[2019-04-04] MEDS: THIAMINE HCL 100 MG TABLET (FP) PO SCH (21:55)
[2019-04-05] MEDS: metFORMIN HCL 500 MG TABLET (FP) PO SCH ×2 (06:49→16:33)
[2019-04-05] MEDS: PHENYTOIN NA EXTENDED 100 MG CAPSULE (FP) PO SCH ×3 (06:49→21:34)
[2019-04-05] MEDS: PRENATAL VITAMINS W/ FOLIC ACID TABLET (FP) PO SCH (10:19)
[2019-04-05] MEDS: NICOTINE 14 MG/24 HOURS TOPICAL PATCH TD SCH (10:19)
[2019-04-05] MEDS: THIAMINE HCL 100 MG TABLET (FP) PO SCH (21:34)
[2019-04-06] MEDS: PHENYTOIN NA EXTENDED 100 MG CAPSULE (FP) PO SCH ×3 (06:10→21:25)
[2019-04-06] MEDS: metFORMIN HCL 500 MG TABLET (FP) PO SCH ×2 (06:10→16:47)
[2019-04-06] MEDS: NICOTINE 14 MG/24 HOURS TOPICAL PATCH TD SCH (09:55)
[2019-04-06] MEDS: PRENATAL VITAMINS W/ FOLIC ACID TABLET (FP) PO SCH (09:55)
[2019-04-06] MEDS: THIAMINE HCL 100 MG TABLET (FP) PO SCH (21:26)
[2019-04-06] MEDS: MELATONIN 5 MG TABLETS PO PRN (21:26)
[2019-04-07] MEDS: metFORMIN HCL 500 MG TABLET (FP) PO SCH ×2 (06:05→16:51)
[2019-04-07] MEDS: PHENYTOIN NA EXTENDED 100 MG CAPSULE (FP) PO SCH ×3 (06:05→21:37)
[2019-04-07] MEDS: PRENATAL VITAMINS W/ FOLIC ACID TABLET (FP) PO SCH (09:51)
[2019-04-07] MEDS: NICOTINE 14 MG/24 HOURS TOPICAL PATCH TD SCH (09:51)
--- NOTE | 2019-04-07 11:51 | PN ---
[facility] Progress Note Note: PT REFUSING " VITAL' STATING "IT MAKES ME SICK". PT WAS OFFERED MVT LIQUID AND AGREES TO TAKE. DILANTIN LEVEL WAS LOW ON PREVIOUS ADMISSION BEFORE SIGNING OUT AMA AND COMING BACK A DAY AFTER. TO BE REPEATED TODAY. Vital Signs - 24 hr 04/06/19 04/07/19 04/07/19 18:16 00:30 03:30 Temperature 97.8 F Pulse Rate 72 Respiratory 18 18 18 Rate Blood Pressure 130/69 04/07/19 06:28 Temperature 98.0 F Pulse Rate 69 Respiratory 16 Rate Blood Pressure 150/83 Laboratory Tests 04/01/19 04/01/19 04/02/19 06:50 17:01 06:38 POC Glucometer 100 93 101 04/02/19 04/03/19 04/03/19 16:53 06:40 16:43 POC Glucometer 78 101 90 04/04/19 04/04/19 04/05/19 05:54 16:43 06:47 POC Glucometer 114 91 102 04/05/19 04/06/19 04/06/19 16:32 06:09 16:47 POC Glucometer 102 106 114 04/07/19 06:04 POC Glucometer 100 CHANGE MVI TO LIQUID DIRECTED. REPEAT DILANTIN LEVEL TODAY
[2019-04-07] MEDS: THIAMINE HCL 100 MG TABLET (FP) PO SCH (21:37)
[2019-04-08] MEDS: metFORMIN HCL 500 MG TABLET (FP) PO SCH ×2 (06:08→16:36)
[2019-04-08] MEDS: PHENYTOIN NA EXTENDED 100 MG CAPSULE (FP) PO SCH ×3 (06:08→21:32)
[2019-04-08] MEDS: MULTIVIT-MINERALS ORAL LIQUID PO SCH (09:45)
[2019-04-08] MEDS: FOLIC ACID 1 MG TABLET (FP) PO SCH (09:45)
[2019-04-08] MEDS: NICOTINE 14 MG/24 HOURS TOPICAL PATCH TD SCH (09:59)
--- NOTE | 2019-04-08 10:16 | PN ---
[facility] Progress Note Note: Laboratory Last Values POC Glucometer 135 UNITS (80-120) 04/08/19 06:06 Phenytoin 0.6 ug/ml (10.0-20.0) L 04/07/19 11:55 DILANTIN LEVEL: SUB-THERAPEUTIC LEVEL OF 0.6 ABOVE. LEVEL WAS <0.4 ON 03/24/19 WHILE IN DETOX. PLAN;DILANTIN 200 MG PO ONCE NOW ORDERED.
[2019-04-08] MEDS ORDERED: PHENYTOIN NA EXTENDED 100 MG CAPSULE (FP) PO ONE (11:05)
[2019-04-08] MEDS: THIAMINE HCL 100 MG TABLET (FP) PO SCH (21:32)
[2019-04-09] MEDS: metFORMIN HCL 500 MG TABLET (FP) PO SCH ×2 (06:24→16:45)
[2019-04-09] MEDS: PHENYTOIN NA EXTENDED 100 MG CAPSULE (FP) PO SCH ×4 (06:24→21:36)
[2019-04-09] MEDS: MULTIVIT-MINERALS ORAL LIQUID PO SCH (10:27)
[2019-04-09] MEDS: FOLIC ACID 1 MG TABLET (FP) PO SCH (10:28)
[2019-04-09] MEDS: NICOTINE 14 MG/24 HOURS TOPICAL PATCH TD SCH (10:28)
[2019-04-09] MEDS: THIAMINE HCL 100 MG TABLET (FP) PO SCH (21:36)
[2019-04-10] MEDS: metFORMIN HCL 500 MG TABLET (FP) PO SCH ×2 (06:16→16:34)
[2019-04-10] MEDS: PHENYTOIN NA EXTENDED 100 MG CAPSULE (FP) PO SCH ×3 (06:16→21:51)
[2019-04-10] MEDS: FOLIC ACID 1 MG TABLET (FP) PO SCH (10:17)
[2019-04-10] MEDS: MULTIVIT-MINERALS ORAL LIQUID PO SCH (10:17)
[2019-04-10] MEDS: NICOTINE 14 MG/24 HOURS TOPICAL PATCH TD SCH (10:18)
[2019-04-10] MEDS: THIAMINE HCL 100 MG TABLET (FP) PO SCH (21:52)
[2019-04-11] MEDS: PHENYTOIN NA EXTENDED 100 MG CAPSULE (FP) PO SCH ×3 (06:11→21:50)
[2019-04-11] MEDS: metFORMIN HCL 500 MG TABLET (FP) PO SCH ×2 (06:11→16:59)
[2019-04-11] MEDS: NICOTINE 14 MG/24 HOURS TOPICAL PATCH TD SCH (10:26)
[2019-04-11] MEDS: FOLIC ACID 1 MG TABLET (FP) PO SCH (10:26)
[2019-04-11] MEDS: MULTIVIT-MINERALS ORAL LIQUID PO SCH (10:27)
[2019-04-11] MEDS: THIAMINE HCL 100 MG TABLET (FP) PO SCH (21:50)
[2019-04-12] MEDS: metFORMIN HCL 500 MG TABLET (FP) PO SCH ×2 (06:03→16:33)
[2019-04-12] MEDS: PHENYTOIN NA EXTENDED 100 MG CAPSULE (FP) PO SCH ×3 (06:03→22:04)
[2019-04-12] MEDS: NICOTINE 14 MG/24 HOURS TOPICAL PATCH TD SCH (10:38)
[2019-04-12] MEDS: FOLIC ACID 1 MG TABLET (FP) PO SCH (10:38)
[2019-04-12] MEDS: MULTIVIT-MINERALS ORAL LIQUID PO SCH (10:38)
--- NOTE | 2019-04-12 14:39 | PN ---
S Progress Note (SOAP) Subjective: PT SCHEDULED FOR ROUTINE DISCHARGE TOMORROW. REHAB PROCEEDED WELL. PT HAS MET WITH HER COUNSELOR AND HAS BEEN REFERRED FOR CD AFTERCARE AT [facility] [address] AND MEDICAL/PSYCH MANAGEMENT AT ADULT WALK- IN CLINIC/ [facility] WITH PCP DR. BENJAMIN. PT REPORTS HE HAS OWN MEDICATIONS IN SECURITY PROPERTY. ALERT O X 3. DENIES S/H/I. Objective: 04/12/19 14:55 Vital Signs - 24 hr 04/12/19 04/12/19 00:30 06:52 Temperature 99.0 F Pulse Rate 86 Respiratory 18 18 Rate Blood Pressure 110/69 Laboratory Tests 04/01/19 04/01/19 04/02/19 06:50 17:01 06:38 POC Glucometer 100 93 101 Phenytoin 04/02/19 04/03/19 04/03/19 16:53 06:40 16:43 POC Glucometer 78 101 90 Phenytoin 04/04/19 04/04/19 04/05/19 05:54 16:43 06:47 POC Glucometer 114 91 102 Phenytoin 04/05/19 04/06/19 04/06/19 16:32 06:09 16:47 POC Glucometer 102 106 114 Phenytoin 04/07/19 04/07/19 04/07/19 06:04 11:55 16:51 POC Glucometer 100 111 Phenytoin 0.6 L 04/08/19 04/08/19 04/09/19 06:06 16:36 06:23 POC Glucometer 135 117 100 Phenytoin 04/09/19 04/10/19 04/10/19 16:45 06:14 16:34 POC Glucometer 129 140 97 Phenytoin 04/11/19 04/11/19 04/12/19 06:10 16:59 06:02 POC Glucometer 117 95 107 Phenytoin Home Medications Medication Instructions Recorded Phenobarbital 100 mg PO TID 10/26/13 Phenytoin Na Extended [Dilantin -] 100 mg PO TID 10/26/13 Albuterol Sulfate Inhaler - 2 puff IH Q4H PRN inhaler 10/15/18 [Ventolin HFA Inhaler -] Metformin HCl [Glucophage] 500 mg PO BID 03/31/19 Assessment: 04/12/19 14:56 NAD MEDICALLY STABLE All Active Problems DM2 (diabetes mellitus, type 2) (chronic) Syncope (chronic) Alcohol dependence (Chronic) Asthma (Chronic) CAD (coronary artery disease) (Chronic) Cannabis abuse (Chronic) Nicotine dependence (Chronic) Seizure (Chronic) Plan: PT MAY DISCHARGE ON 04/13/19 FOLLOW UP WITH CD AFTERCARE RECOMMENDED. FOLLOW UP WITH PCP DR. SHELL FOR MEDICAL MANAGEMENT 1-2 WEEKS AFTER DISCHARGE.
[2019-04-12] MEDS ORDERED: PHENYTOIN NA EXTENDED 100 MG CAPSULE (FP) PO ONE (20:01)
[2019-04-12] MEDS: THIAMINE HCL 100 MG TABLET (FP) PO SCH (22:04)
[2019-04-13] MEDS: metFORMIN HCL 500 MG TABLET (FP) PO SCH (06:20)
[2019-04-13] MEDS: PHENYTOIN NA EXTENDED 100 MG CAPSULE (FP) PO SCH (06:21)
[2019-04-13 06:38] VITALS: BP 142/94; PULSE 78; TEMP 97.5
[2019-04-13] MEDS: NICOTINE 14 MG/24 HOURS TOPICAL PATCH TD SCH (09:58)
[2019-04-13] MEDS: MULTIVIT-MINERALS ORAL LIQUID PO SCH (09:58)
[2019-04-13] MEDS: FOLIC ACID 1 MG TABLET (FP) PO SCH (09:58)
== END 2019-04-13 10:55 | disposition home or self-care (01) | DRG 772 ==
LOC: YASAS 20:27 → Y5N 23:12
PROVIDERS: ADMIT Neuromusculoskeletal Medicine & OMM; ATTEND Neuromusculoskeletal Medicine & OMM
PROC: HZ42ZZZ Group Counseling for Substance Abuse Treatment, Cognitive-Behavioral (ICD-10-PCS; principal; 2019-03-31)
DX: F10.20 Alcohol dependence, uncomplicated (principal); F12.10 Cannabis abuse, uncomplicated; F17.210 Nicotine dependence, cigarettes, uncomplicated; J45.909 Unspecified asthma, uncomplicated; I25.10 Atherosclerotic heart disease of native coronary artery without angina pectoris; E11.9 Type 2 diabetes mellitus without complications; Z79.84 Long term (current) use of oral hypoglycemic drugs; G40.909 Epilepsy, unspecified, not intractable, without status epilepticus
CPT/HCPCS: 36415; 80185; 82962

== ENCOUNTER 2019-04-25 08:56 | Inpatient (IN) | payer OTHER ==
[2019-04-25 09:41] VITALS: BMI 22.4
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
[2019-04-25] MEDS ORDERED: ACETAMINOPHEN 325 MG TABLET (FP) PO PRN ×2 (10:45)
[2019-04-25] MEDS ORDERED: MAGNESIUM HYDROX 2400MG/30ML ORAL SUSPENSION 30 ML CUP PO PRN (10:45)
[2019-04-25] MEDS ORDERED: IBUPROFEN 400 MG TABLET (FP) PO PRN (10:45)
[2019-04-25] MEDS ORDERED: MENTHOL/PHENOL 1 EACH UD MM PRN (10:45)
[2019-04-25] MEDS ORDERED: BISMUTH SUBSALICYLATE 524 MG/30 ML UD PO PRN (10:45)
[2019-04-25] MEDS ORDERED: METHOCARBAMOL 500 MG TABLET PO PRN (10:45)
[2019-04-25] MEDS ORDERED: hydrOXYzine PAMOATE 25 MG CAPSULE (FP) PO PRN (10:45)
[2019-04-25] MEDS ORDERED: MAG HYDROX/AL HYDROX/SIMETH 30 ML UNIT-DOSE CUP PO PRN (10:45)
[2019-04-25] MEDS ORDERED: chlordiazePOXIDE HCL 25 MG CAPSULE PO PRN (10:45)
[2019-04-25] MEDS ORDERED: MAGNESIUM CITRATE 300 ML BOTTLE PO PRN (10:45)
[2019-04-25] MEDS ORDERED: ALBUTEROL SO4 8 GM HFA INHALER IH PRN (10:49)
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
[2019-04-25] MEDS: PHENYTOIN NA EXTENDED 100 MG CAPSULE (FP) PO SCH ×2 (13:51→22:28)
[2019-04-25 14:50] LABS: HEMATOCRIT 38.6 % (35.4-49); HEMOGLOBIN 13.1 GM/dL (11.7-16.9); MCH 30.9 pg (25.7-33.7); MEAN CELL VOLUME 90.7 fl (80-96); MEAN PLT VOLUME 8.6 fl (7.5-11.1); PLATELET COUNT 157 K/MM3 (134-434); RBC 4.26 M/mm3 (4.00-5.60); RDW 15.5 % (11.9-15.9); WHITE BLOOD COUNT 8.5 K/mm3 (4.0-10.0)
[2019-04-25 14:53] LABS: ALBUMIN 3.9 g/dl (3.4-5.0); BILIRUBIN,TOTAL 1.3 mg/dL (0.2-1); BLOOD UREA NITROGEN 39.5 mg/dL (7-18); CALCIUM 8.8 mg/dL (8.5-10.1); CREATININE 1.6 mg/dL (0.55-1.3); POTASSIUM 3.5 mmol/L (3.5-5.1); TOT PROT 7.6 g/dl (6.4-8.2)
[2019-04-25] MEDS: metFORMIN HCL 500 MG TABLET (FP) PO SCH (17:45)
[2019-04-25] MEDS: chlordiazePOXIDE HCL 25 MG CAPSULE PO SCH ×2 (18:00→22:43)
[2019-04-25 21:20] LABS: URINE APPEARANCE CLEAR; URINE COLOR DK YELLOW; URINE GLUCOSE (UA) NEGATIVE (NEGATIVE); URINE KETONE TRACE (NEGATIVE)
[2019-04-25 21:21] LABS: PH,URINE 5.5 (5.0-8.0)
[2019-04-25 21:22] LABS: URINE PROTEIN 1+ (NEGATIVE)
[2019-04-25 21:23] LABS: URINE LEUK ESTERASE TRACE (NEGATIVE); URINE NITRITE NEGATIVE (NEGATIVE)
[2019-04-25] MEDS ORDERED: MELATONIN 5 MG TABLETS PO PRN (22:00)
[2019-04-25] MEDS: THIAMINE HCL 100 MG TABLET (FP) PO SCH (22:28)
[2019-04-26] MEDS: chlordiazePOXIDE HCL 25 MG CAPSULE PO SCH ×4 (06:07→23:08)
[2019-04-26] MEDS: PHENYTOIN NA EXTENDED 100 MG CAPSULE (FP) PO SCH ×4 (06:07→23:09)
[2019-04-26 07:08] LABS: URINE BILIRUBIN 1+ (NEGATIVE)
--- NOTE | 2019-04-26 09:34 | PN ---
S CIWA - CIWA Score Nausea/Vomitin Muscle Tremors: 2 Anxiety: 2 Agitation: 2 Paroxysmal Sweats: 1-Minimal Palms Moist Orientation: 0-Oriented Tacttile Disturbances: 1-Very Mild Itch/Numbness Auditory Disturbances: 0-None Visual Disturbances: 0-None Headache: 2-Mild CIWA-Ar Total Score: 12 BHS Progress Note (SOAP) Subjective: alert,irritable,anxious,interrupted sleep,tremor.pain in he body Objective: 04/26/19 09:29 Vital Signs Temperature 97.3 F L 04/26/19 07:16 Pulse Rate 68 04/26/19 07:16 Respiratory Rate 20 04/26/19 07:16 Blood Pressure 122/72 04/26/19 07:16 O2 Sat by Pulse Oximetry (%) Laboratory Last Values WBC 8.5 K/mm3 (4.0-10.0) 04/25/19 10:55 RBC 4.26 M/mm3 (4.00-5.60) 04/25/19 10:55 Hgb 13.1 GM/dL (11.7-16.9) 04/25/19 10:55 Hct 38.6 % (35.4-49) 04/25/19 10:55 MCV 90.7 fl (80-96) 04/25/19 10:55 MCH 30.9 pg (25.7-33.7) 04/25/19 10:55 MCHC 34.0 g/dl (32.0-35.9) 04/25/19 10:55 RDW 15.5 % (11.9-15.9) 04/25/19 10:55 Plt Count 157 K/MM3 (134-434) D 04/25/19 10:55 MPV 8.6 fl (7.5-11.1) 04/25/19 10:55 Sodium 135 mmol/L (136-145) L 04/25/19 10:55 Potassium 3.5 mmol/L (3.5-5.1) 04/25/19 10:55 Chloride 100 mmol/L (98-107) 04/25/19 10:55 Carbon Dioxide 29 mmol/L (21-32) 04/25/19 10:55 Anion Gap 7 MMOL/L (8-16) L 04/25/19 10:55 BUN 39.5 mg/dL (7-18) H 04/25/19 10:55 Creatinine 1.6 mg/dL (0.55-1.3) H 04/25/19 10:55 Est GFR (CKD-EPI)AfAm 50.91 04/25/19 10:55 Est GFR (CKD-EPI)NonAf 43.93 04/25/19 10:55 POC Glucometer 105 UNITS (80-120) 04/26/19 05:55 Random Glucose 114 mg/dL (74-106) H 04/25/19 10:55 Calcium 8.8 mg/dL (8.5-10.1) 04/25/19 10:55 Total Bilirubin 1.3 mg/dL (0.2-1) H 04/25/19 10:55 AST 118 U/L (15-37) H 04/25/19 10:55 ALT 91 U/L (13-61) H 04/25/19 10:55 Alkaline Phosphatase 168 U/L (45-117) H 04/25/19 10:55 Total Protein 7.6 g/dl (6.4-8.2) 04/25/19 10:55 Albumin 3.9 g/dl (3.4-5.0) 04/25/19 10:55 Urine Color Dk yellow 04/25/19 12:00 Urine Appearance Clear 04/25/19 12:00 Urine pH 5.5 (5.0-8.0) D 04/25/19 12:00 Ur Specific [place] 1.029 (1.010-1.035) 04/25/19 12:00 Urine Protein 1+ (NEGATIVE) H 04/25/19 12:00 Urine Glucose (UA) Negative (NEGATIVE) 04/25/19 12:00 Urine Ketones Trace (NEGATIVE) H 04/25/19 12:00 Urine Blood Negative (NEGATIVE) 04/25/19 12:00 Urine Nitrite Negative (NEGATIVE) 04/25/19 12:00 Urine Bilirubin 1+ (NEGATIVE) H 04/25/19 12:00 Urine Urobilinogen 2.0 mg/dL (0.2-1.0) 04/25/19 12:00 Ur Leukocyte Esterase Trace (NEGATIVE) 04/25/19 12:00 Urine WBC (Auto) Blanket Folder 04/25/19 12:00 Phenytoin < 0.4 ug/ml (10.0-20.0) L 04/25/19 10:55 Assessment: 04/26/19 09:31 withdrawal symptom Plan: continue detox,renal insufficiency,encourage oral fluid,repeat cmp in am,d/c motrin, repeat cmp dilantin in am,dilantin 300 mgs po now then 100 mg po tid,repeat liver enzymes
[2019-04-26] MEDS ORDERED: PHENYTOIN NA EXTENDED 100 MG CAPSULE (FP) PO ONE (09:35)
[2019-04-26] MEDS: PHENobarbital 30 MG TABLET PO SCH (11:27)
[2019-04-26] MEDS: PRENATAL VITAMINS W/ FOLIC ACID TABLET (FP) PO SCH (11:27)
[2019-04-26] MEDS: metFORMIN HCL 500 MG TABLET (FP) PO SCH (17:35)
[2019-04-26] MEDS: THIAMINE HCL 100 MG TABLET (FP) PO SCH ×2 (23:05→23:09)
[2019-04-27] MEDS: metFORMIN HCL 500 MG TABLET (FP) PO SCH (06:48)
[2019-04-27] MEDS: PHENYTOIN NA EXTENDED 100 MG CAPSULE (FP) PO SCH ×3 (06:48→23:29)
[2019-04-27] MEDS: chlordiazePOXIDE HCL 25 MG CAPSULE PO SCH ×4 (06:48→23:29)
[2019-04-27 10:22] LABS: ALBUMIN 3.2 g/dl (3.4-5.0); BILIRUBIN,TOTAL 0.7 mg/dL (0.2-1); BLOOD UREA NITROGEN 24.3 mg/dL (7-18); CALCIUM 8.4 mg/dL (8.5-10.1); CREATININE 0.9 mg/dL (0.55-1.3); POTASSIUM 3.8 mmol/L (3.5-5.1); TOT PROT 6.6 g/dl (6.4-8.2)
[2019-04-27] MEDS: PRENATAL VITAMINS W/ FOLIC ACID TABLET (FP) PO SCH (10:28)
[2019-04-27] MEDS: PHENobarbital 30 MG TABLET PO SCH (10:28)
--- NOTE | 2019-04-27 10:42 | PN ---
S CIWA - CIWA Score Nausea/Vomitin Muscle Tremors: 2 Anxiety: 2 Agitation: 0-Normal Activity Paroxysmal Sweats: 1-Minimal Palms Moist Orientation: 0-Oriented Tacttile Disturbances: 0-None Auditory Disturbances: 0-None Visual Disturbances: 0-None Headache: 1-Very Mild CIWA-Ar Total Score: 9 BHS Progress Note (SOAP) Subjective: patient on alcohl detox c/o of nausea, vomiting, diarrhea, reports prior hx of tx alcohol use d/o with antabuse with no success, interested in attending rehab post detox and exploring IM naltrexone Assessment: 04/27/19 10:39 Vital Signs Temperature 96.1 F L 04/27/19 07:19 Pulse Rate 91 H 04/27/19 07:19 Respiratory Rate 20 04/27/19 07:19 Blood Pressure 90/63 04/27/19 07:19 O2 Sat by Pulse Oximetry (%) Laboratory Last Values WBC 8.5 K/mm3 (4.0-10.0) 04/25/19 10:55 RBC 4.26 M/mm3 (4.00-5.60) 04/25/19 10:55 Hgb 13.1 GM/dL (11.7-16.9) 04/25/19 10:55 Hct 38.6 % (35.4-49) 04/25/19 10:55 MCV 90.7 fl (80-96) 04/25/19 10:55 MCH 30.9 pg (25.7-33.7) 04/25/19 10:55 MCHC 34.0 g/dl (32.0-35.9) 04/25/19 10:55 RDW 15.5 % (11.9-15.9) 04/25/19 10:55 Plt Count 157 K/MM3 (134-434) D 04/25/19 10:55 MPV 8.6 fl (7.5-11.1) 04/25/19 10:55 Sodium 138 mmol/L (136-145) 04/27/19 08:00 Potassium 3.8 mmol/L (3.5-5.1) 04/27/19 08:00 Chloride 103 mmol/L (98-107) 04/27/19 08:00 Carbon Dioxide 28 mmol/L (21-32) 04/27/19 08:00 Anion Gap 6 MMOL/L (8-16) L 04/27/19 08:00 BUN 24.3 mg/dL (7-18) H 04/27/19 08:00 Creatinine 0.9 mg/dL (0.55-1.3) 04/27/19 08:00 Est GFR (CKD-EPI)AfAm 102.07 04/27/19 08:00 Est GFR (CKD-EPI)NonAf 88.07 04/27/19 08:00 POC Glucometer 92 UNITS (80-120) 04/27/19 06:22 Random Glucose 106 mg/dL (74-106) 04/27/19 08:00 Calcium 8.4 mg/dL (8.5-10.1) L 04/27/19 08:00 Total Bilirubin 0.7 mg/dL (0.2-1) 04/27/19 08:00 AST 51 U/L (15-37) H 04/27/19 08:00 ALT 67 U/L (13-61) H 04/27/19 08:00 Alkaline Phosphatase 122 U/L (45-117) H 04/27/19 08:00 Total Protein 6.6 g/dl (6.4-8.2) 04/27/19 08:00 Albumin 3.2 g/dl (3.4-5.0) L 04/27/19 08:00 Urine Color Dk yellow 04/25/19 12:00 Urine Appearance Clear 04/25/19 12:00 Urine pH 5.5 (5.0-8.0) D 04/25/19 12:00 Ur Specific [place] 1.029 (1.010-1.035) 04/25/19 12:00 Urine Protein 1+ (NEGATIVE) H 04/25/19 12:00 Urine Glucose (UA) Negative (NEGATIVE) 04/25/19 12:00 Urine Ketones Trace (NEGATIVE) H 04/25/19 12:00 Urine Blood Negative (NEGATIVE) 04/25/19 12:00 Urine Nitrite Negative (NEGATIVE) 04/25/19 12:00 Urine Bilirubin 1+ (NEGATIVE) H 04/25/19 12:00 Urine Urobilinogen 2.0 mg/dL (0.2-1.0) 04/25/19 12:00 Ur Leukocyte Esterase Trace (NEGATIVE) 04/25/19 12:00 Urine WBC (Auto) Continuous Improvement Specialist 04/25/19 12:00 Phenytoin < 0.4 ug/ml (10.0-20.0) L 04/25/19 10:55 RPR Titer Nonreactive (NONREACTIVE) 04/25/19 10:55 labs reviewed , pending results for repeat phenytoin, d/c acetaminophen Patient Aox3, no acute distress, full ROM ambulating in the unit continue detox continue to monitor increase PO fluids
[2019-04-27 14:01] VITALS: TEMP 98.1
[2019-04-27 21:19] VITALS: BP 150/82; PULSE 74
[2019-04-27] MEDS: THIAMINE HCL 100 MG TABLET (FP) PO SCH (23:29)
[2019-04-28] MEDS ORDERED: chlordiazePOXIDE HCL 10 MG CAPSULE PO PRN
[2019-04-28] MEDS ORDERED: chlordiazePOXIDE HCL 10 MG CAPSULE PO SCH (05:00)
--- NOTE | 2019-04-28 08:47 | PN ---
S Progress Note Note: pt was admitted in withdrawals pt c/o of withdrawals symptoms and aggressive symptomatic management attempted however, pt in spite of extensive motivational counseling regarding the risk of relapse DT, seizures and or /loss pt chose to sign out.
--- NOTE | 2019-04-28 08:53 | DS ---
[facility] Detox Discharge Summary Admission Date: 04/25/19 - History Present History: Alcohol Dependence, Cannabis Dependence - Physical Exam Results Vital Signs: Vital Signs Temperature 98.1 F 04/27/19 21:18 Pulse Rate 74 04/27/19 21:18 Respiratory Rate 18 04/28/19 00:30 Blood Pressure 150/82 04/27/19 21:18 O2 Sat by Pulse Oximetry (%) Pertinent Admission Physical Exam Findings: pt arrived in withdrawal sx Laboratory Tests 04/25/19 04/25/19 04/25/19 10:55 10:55 10:55 WBC 8.5 RBC 4.26 Hgb 13.1 Hct 38.6 MCV 90.7 MCH 30.9 MCHC 34.0 RDW 15.5 Plt Count 157 D MPV 8.6 Sodium 135 L Potassium 3.5 Chloride 100 Carbon Dioxide 29 Anion Gap 7 L BUN 39.5 H Creatinine 1.6 H Est GFR (CKD-EPI)AfAm 50.91 Est GFR (CKD-EPI)NonAf 43.93 POC Glucometer Random Glucose 114 H Calcium 8.8 Total Bilirubin 1.3 H AST 118 H ALT 91 H Alkaline Phosphatase 168 H Total Protein 7.6 Albumin 3.9 Urine Color Urine Appearance Urine pH Ur Specific [place] Urine Protein Urine Glucose (UA) Urine Ketones Urine Blood Urine Nitrite Urine Bilirubin Urine Urobilinogen Ur Leukocyte Esterase Urine WBC (Auto) Phenytoin RPR Titer Nonreactive 04/25/19 04/25/19 04/25/19 10:55 11:03 12:00 WBC RBC Hgb Hct MCV MCH MCHC RDW Plt Count MPV Sodium Potassium Chloride Carbon Dioxide Anion Gap BUN Creatinine Est GFR (CKD-EPI)AfAm Est GFR (CKD-EPI)NonAf POC Glucometer 118 Random Glucose Calcium Total Bilirubin AST ALT Alkaline Phosphatase Total Protein Albumin Urine Color Dk yellow Urine Appearance Clear Urine pH 5.5 D Ur Specific [place] 1.029 Urine Protein 1+ H Urine Glucose (UA) Negative Urine Ketones Trace H Urine Blood Negative Urine Nitrite Negative Urine Bilirubin 1+ H Urine Urobilinogen 2.0 Ur Leukocyte Esterase Trace Urine WBC (Auto) Wildlife Ecology Professor Phenytoin < 0.4 L RPR Titer 04/25/19 04/26/19 04/26/19 16:50 05:55 11:39 WBC RBC Hgb Hct MCV MCH MCHC RDW Plt Count MPV Sodium Potassium Chloride Carbon Dioxide Anion Gap BUN Creatinine Est GFR (CKD-EPI)AfAm Est GFR (CKD-EPI)NonAf POC Glucometer 101 105 109 Random Glucose Calcium Total Bilirubin AST ALT Alkaline Phosphatase Total Protein Albumin Urine Color Urine Appearance Urine pH Ur Specific [place] Urine Protein Urine Glucose (UA) Urine Ketones Urine Blood Urine Nitrite Urine Bilirubin Urine Urobilinogen Ur Leukocyte Esterase Urine WBC (Auto) Phenytoin RPR Titer 04/26/19 04/27/19 04/27/19 16:47 06:22 08:00 WBC RBC Hgb Hct MCV MCH MCHC RDW Plt Count MPV Sodium 138 Potassium 3.8 Chloride 103 Carbon Dioxide 28 Anion Gap 6 L BUN 24.3 H Creatinine 0.9 Est GFR (CKD-EPI)AfAm 102.07 Est GFR (CKD-EPI)NonAf 88.07 POC Glucometer 118 92 Random Glucose 106 Calcium 8.4 L Total Bilirubin 0.7 AST 51 H ALT 67 H Alkaline Phosphatase 122 H Total Protein 6.6 Albumin 3.2 L Urine Color Urine Appearance Urine pH Ur Specific [place] Urine Protein Urine Glucose (UA) Urine Ketones Urine Blood Urine Nitrite Urine Bilirubin Urine Urobilinogen Ur Leukocyte Esterase Urine WBC (Auto) Phenytoin RPR Titer 04/27/19 08:00 WBC RBC Hgb Hct MCV MCH MCHC RDW Plt Count MPV Sodium Potassium Chloride Carbon Dioxide Anion Gap BUN Creatinine Est GFR (CKD-EPI)AfAm Est GFR (CKD-EPI)NonAf POC Glucometer Random Glucose Calcium Total Bilirubin AST ALT Alkaline Phosphatase Total Protein Albumin Urine Color Urine Appearance Urine pH Ur Specific [place] Urine Protein Urine Glucose (UA) Urine Ketones Urine Blood Urine Nitrite Urine Bilirubin Urine Urobilinogen Ur Leukocyte Esterase Urine WBC (Auto) Phenytoin < 0.4 L RPR Titer pt leaving without completing detox. pt has been made aware of risks to relapse and/seizure or DT/even loss for leaving without proper completion pt chose to sign out. pt declined rehab; referral provided - Treatment Hospital Course: Detox Protocol Followed, Detoxed Safely, Responded well, Discharged Condition Good, Rehab Referral Accepted Patient has Accepted a Rehab Referral to: pt declined - Medication Discharge Medications: Ambulatory Orders Phenobarbital 100 mg PO TID 10/26/13 Phenytoin Na Extended [Dilantin -] 100 mg PO TID 10/26/13 Albuterol Sulfate Inhaler - [Ventolin HFA Inhaler -] 2 puff IH Q4H PRN inhaler 10/15/18 Metformin HCl [Glucophage] 500 mg PO BID 03/31/19 - Diagnosis (1) Schizophrenia, residual type Current Visit: Yes Status: Chronic (2) Paranoid schizophrenia Current Visit: Yes Status: Chronic (3) History of NH (myocardial infarction) Current Visit: Yes Status: Resolved (4) Chronic residual schizophrenia Current Visit: Yes Status: Ruled-out (5) Alcohol dependence with uncomplicated withdrawal Current Visit: Yes Status: Chronic (6) Cannabis abuse Current Visit: Yes Status: Acute (7) Syncope Current Visit: Yes Status: Chronic (8) Asthma Current Visit: Yes Status: Chronic Qualifiers: Asthma severity: mild Asthma persistence: intermittent Asthma complication type: unspecified Qualified Code(s): J45.20 - Mild intermittent asthma, uncomplicated (9) CAD (coronary artery disease) Current Visit: Yes Status: Chronic Qualifiers: [place] vs. transplanted heart: unspecified whether [place] or transplanted heart Associated angina: without angina (10) DM Diabetes mellitus type 2 Current Visit: Yes Status: Chronic (11) Nicotine dependence Current Visit: Yes Status: Chronic Qualifiers: Nicotine product type: cigarettes Substance use status: uncomplicated Qualified Code(s): F17.210 - Nicotine dependence, cigarettes, uncomplicated (12) Seizure Current Visit: No Status: Chronic - AMA Did Patient Leave Against Medical Advice: Yes (pt going home. referral provided)
[2019-04-29] MEDS ORDERED: chlordiazePOXIDE HCL 10 MG CAPSULE PO SCH (05:00)
[2019-04-30] MEDS ORDERED: chlordiazePOXIDE HCL 10 MG CAPSULE PO ONE (05:00)
== END 2019-04-28 09:07 | disposition home or self-care (01) | DRG 775 ==
LOC: YASAS 08:56 → Y6N 10:52
PROVIDERS: ADMIT Surgery; ATTEND Surgery
PROC: HZ2ZZZZ Detoxification Services for Substance Abuse Treatment (ICD-10-PCS; principal; 2019-04-25)
DX: F10.230 Alcohol dependence with withdrawal, uncomplicated (principal); F12.20 Cannabis dependence, uncomplicated; F17.210 Nicotine dependence, cigarettes, uncomplicated; F20.5 Residual schizophrenia; F20.0 Paranoid schizophrenia; I25.10 Atherosclerotic heart disease of native coronary artery without angina pectoris; I10 Essential (primary) hypertension; I25.2 Old myocardial infarction; J45.20 Mild intermittent asthma, uncomplicated; E11.9 Type 2 diabetes mellitus without complications; Z86.69 Personal history of other diseases of the nervous system and sense organs
CPT/HCPCS: 36415; 80053; 80185; 81003; 82962; 85027; 86593

== ENCOUNTER 2021-09-20 19:30 | Inpatient (IN) | payer OTHER ==
[2021-09-20 21:07] VITALS: BMI 28.7
[2021-09-20] MEDS ORDERED: BISMUTH SUBSALICYLATE 524 MG/30 ML PO PRN (23:36)
[2021-09-20] MEDS ORDERED: NICOTINE POLACRILEX 2 MG GUM BUC PRN (23:36)
[2021-09-20] MEDS ORDERED: IBUPROFEN 400 MG TABLET (FP) PO PRN (23:36)
[2021-09-20] MEDS ORDERED: METHOCARBAMOL 500 MG TABLET PO PRN (23:36)
[2021-09-20] MEDS ORDERED: MAGNESIUM CITRATE 300 ML BOTTLE PO PRN (23:36)
[2021-09-20] MEDS ORDERED: MENTHOL/PHENOL 1 EACH UD MM PRN (23:36)
[2021-09-20] MEDS ORDERED: MAGNESIUM HYDROX 2400MG/30ML ORAL SUSPENSION 30 ML CUP PO PRN (23:36)
[2021-09-20] MEDS ORDERED: chlordiazePOXIDE HCL 25 MG CAPSULE PO PRN (23:36)
[2021-09-20] MEDS ORDERED: MAG HYDROX/AL HYDROX/SIMETH 30 ML UNIT-DOSE CUP PO PRN (23:36)
[2021-09-20] MEDS ORDERED: ACETAMINOPHEN 325 MG TABLET (FP) PO PRN ×2 (23:36)
[2021-09-20] MEDS ORDERED: ONDANSETRON *ODT* 4 MG TABLET SL PRN (23:36)
[2021-09-20] MEDS ORDERED: ALBUTEROL SO4 HFA INHALER IH PRN (23:49)
[2021-09-21] MEDS: chlordiazePOXIDE HCL 25 MG CAPSULE PO SCH ×5 (01:13→23:46)
[2021-09-21] MEDS: PHENYTOIN NA EXTENDED 100 MG CAPSULE (FP) PO SCH ×4 (01:13→22:44)
[2021-09-21] MEDS: guaiFENesin 200 MG/10 ML 10 ML UNIT-DOSE CUPS PO SCH ×2 (01:35→03:53)
[2021-09-21] MEDS ORDERED: PHENOBARBITAL 30 MG PO SCH (06:00)
[2021-09-21] MEDS: INSULIN SLIDING SCALE (NOVOLOG) 1 VIAL SQ SCH ×4 (07:00→21:25)
[2021-09-21] MEDS: metFORMIN HCL 500 MG TABLET (FP) PO SCH ×2 (07:40→17:24)
[2021-09-21] MEDS: PANTOPRAZOLE 20 MG TABLET PO SCH (10:47)
[2021-09-21] MEDS: PRENATAL VITAMINS W/ FOLIC ACID TABLET (FP) PO SCH (10:47)
[2021-09-21 12:16] LABS: CALCIUM 8.1 mg/dL (8.5-10.1)
[2021-09-21 12:17] LABS: ALBUMIN 2.8 g/dl (3.4-5.0); BLOOD UREA NITROGEN 8.8 mg/dL (7-18)
[2021-09-21 12:20] LABS: CREATININE 0.7 mg/dL (0.55-1.3)
[2021-09-21 12:21] LABS: BILIRUBIN,TOTAL 0.6 mg/dL (0.2-1); TOT PROT 6.9 g/dl (6.4-8.2)
[2021-09-21 12:28] LABS: HEMATOCRIT 39.8 % (35.4-49); HEMOGLOBIN 13.1 GM/dL (11.7-16.9); MCH 29.8 pg (25.7-33.7); MCHC 32.8 g/dl (32.0-35.9); MEAN CELL VOLUME 90.9 fl (80-96); MEAN PLT VOLUME 7.1 fl (7.5-11.1); PLATELET COUNT 251 10^3/uL (134-434); RBC 4.38 M/mm3 (4.00-5.60); RDW 14.6 % (11.9-15.9); WHITE BLOOD COUNT 6.9 K/mm3 (4.0-10.0)
[2021-09-21 13:11] LABS: HIV INTERPRETATION NEGATIVE (NEGATIVE)
[2021-09-21] MEDS: THIAMINE HCL 100 MG TABLET (FP) PO SCH (22:44)
[2021-09-21] MEDS: MELATONIN 5 MG TABLETS PO SCH (22:44)
[2021-09-22] MEDS: chlordiazePOXIDE HCL 25 MG CAPSULE PO SCH ×4 (05:31→23:06)
[2021-09-22] MEDS: PHENYTOIN NA EXTENDED 100 MG CAPSULE (FP) PO SCH ×3 (05:31→23:05)
[2021-09-22] MEDS: metFORMIN HCL 500 MG TABLET (FP) PO SCH ×2 (06:00→18:19)
[2021-09-22] MEDS: INSULIN SLIDING SCALE (NOVOLOG) 1 VIAL SQ SCH ×4 (06:01→23:05)
[2021-09-22] MEDS: PRENATAL VITAMINS W/ FOLIC ACID TABLET (FP) PO SCH (11:27)
[2021-09-22] MEDS: PANTOPRAZOLE 20 MG TABLET PO SCH (11:28)
[2021-09-22 18:09] VITALS: BP 136/81; PULSE 65; TEMP 97.4
[2021-09-22] MEDS: MELATONIN 5 MG TABLETS PO SCH (23:05)
[2021-09-22] MEDS: THIAMINE HCL 100 MG TABLET (FP) PO SCH (23:06)
[2021-09-22] MEDS ORDERED: levETIRAcetam 500 MG/5 ML INJECTION VIAL IVPB SCH (23:45)
[2021-09-23] MEDS ORDERED: chlordiazePOXIDE HCL 10 MG CAPSULE PO PRN
[2021-09-23] MEDS ORDERED: chlordiazePOXIDE HCL 10 MG CAPSULE PO SCH (05:00)
[2021-09-24] MEDS ORDERED: chlordiazePOXIDE HCL 10 MG CAPSULE PO SCH (05:00)
[2021-09-25] MEDS ORDERED: chlordiazePOXIDE HCL 10 MG CAPSULE PO ONE (05:00)
== END 2021-09-23 00:07 | disposition short-term general hospital (02) | DRG 897 ==
LOC: YASAS 19:30 → Y3N 23:33
PROVIDERS: ADMIT Allergy & Immunology
PROC: HZ2ZZZZ Detoxification Services for Substance Abuse Treatment (ICD-10-PCS; principal; 2021-09-20)
DX: F10.230 Alcohol dependence with withdrawal, uncomplicated (principal); J44.1 Chronic obstructive pulmonary disease with (acute) exacerbation; F17.210 Nicotine dependence, cigarettes, uncomplicated; I10 Essential (primary) hypertension; E11.9 Type 2 diabetes mellitus without complications; R41.82 Altered mental status, unspecified; G40.909 Epilepsy, unspecified, not intractable, without status epilepticus; J45.20 Mild intermittent asthma, uncomplicated; I25.2 Old myocardial infarction; R05.9 Cough, unspecified; R10.816 Epigastric abdominal tenderness; K21.9 Gastro-esophageal reflux disease without esophagitis; S80.212D Abrasion, left knee, subsequent encounter; X58.XXXD Exposure to other specified factors, subsequent encounter; Z88.8 Allergy status to other drugs, medicaments and biological substances; Z91.013 Allergy to seafood; Z86.79 Personal history of other diseases of the circulatory system
CPT/HCPCS: 36415; 80053; 80185; 82962; 85027; 86780; 87389; C9803; U0003; U0005

== ENCOUNTER 2021-09-22 18:29 | Inpatient (IN) | payer OTHER ==
[2021-09-22] MEDS ORDERED: NALOXONE HCL 0.4 MG/ML VIAL IVPUSH ONE (19:36)
[2021-09-22] MEDS ORDERED: DEXAMETHASONE SOD PHOSPHATE 4 MG/1 ML VIAL IVPUSH ONE (19:36)
[2021-09-22] MEDS ORDERED: DEXAMETHASONE SOD PHOSPHATE 10 MG/1 ML VIAL ONE (20:07)
[2021-09-22] MEDS ORDERED: NALOXONE HCL 0.4 MG/ML VIAL ONE (20:07)
[2021-09-22 20:11] LABS: BASO % 0.3 % (0-2.0); EOS % 1.4 % (0-4.5); HEMATOCRIT 40.5 % (35.4-49); HEMOGLOBIN 13.2 GM/dL (11.7-16.9); LYMPH % 16.9 % (8-40); MCH 29.5 pg (25.7-33.7); MCHC 32.7 g/dl (32.0-35.9); MEAN CELL VOLUME 90.3 fl (80-96); MEAN PLT VOLUME 6.4 fl (7.5-11.1); MONO % 13.9 % (3.8-10.2); NEUT % 67.5 % (42.8-82.8); PLATELET COUNT 267 10^3/uL (134-434); RBC 4.48 M/mm3 (4.00-5.60); RDW 14.9 % (11.9-15.9); WHITE BLOOD COUNT 5.7 K/mm3 (4.0-10.0)
[2021-09-22 20:21] LABS: INR 0.91 (0.83-1.09); PROTHROMBIN TIME (PATIENT) 10.6 SEC (9.7-13.0)
[2021-09-22 20:37] LABS: CHLORIDE 91 mmol/L (98-107); SODIUM 132 mmol/L (136-145)
[2021-09-22 20:38] LABS: CALCIUM 8.2 mg/dL (8.5-10.1)
[2021-09-22 20:40] LABS: ALBUMIN 3.1 g/dl (3.4-5.0); ANION GAP 2 MMOL/L (8-16); BLOOD UREA NITROGEN 8.3 mg/dL (7-18); CO2 39 mmol/L (21-32); GLUCOSE,RANDOM 114 mg/dL (74-106)
[2021-09-22 20:43] LABS: CREATININE 0.6 mg/dL (0.55-1.3); SGOT/AST 44 U/L (15-37); SGPT/ALT 43 U/L (13-61); TOT PROT 7.3 g/dl (6.4-8.2)
[2021-09-22 20:45] LABS: BILIRUBIN,TOTAL 0.5 mg/dL (0.2-1)
[2021-09-22 20:46] LABS: ALK PHOS 110 U/L (45-117); LDH 403 U/L (87-246)
[2021-09-22] MEDS ORDERED: CEFTRIAXONE 1,000 MG in DEXTROSE 5%-WATER - 50 ML IVPB ONE (22:03)
[2021-09-22] MEDS ORDERED: AZITHROMYCIN IVPB 500 MG in DEXTROSE 5%-WATER - 250 ML IVPB ONE (22:03)
[2021-09-22] MEDS ORDERED: CEFTRIAXONE 1 GM/50 ML BAG ONE (22:19)
[2021-09-22] MEDS ORDERED: AZITHROMYCIN IVPB 500 MG/250 ML BAG IVPB ONE (22:24)
[2021-09-22] MEDS ORDERED: LACTATED RINGERS SOLUTION 1000 ML INFUS.BAG IV ONE (23:07)
[2021-09-22] MEDS ORDERED: levETIRAcetam 500 MG/5 ML INJECTION VIAL IVPB ONE ×2 (23:07→23:11)
[2021-09-22] MEDS ORDERED: ALBUTEROL SO4 2.5/IPRATROPIUM 0.5 INH SOL 3 ML VIAL.NEB. NEB SCH (23:32)
[2021-09-22 23:45] LABS: ARTERIAL BLD GAS O2 SATURATION 90.9 % (95-98); ARTERIAL BLOOD GAS PO2 77.4 mmHg (80-100)
[2021-09-22 23:47] LABS: ALLENS TEST POSITIVE; ARTERIAL BLOOD GAS pH 7.179 (7.350-7.450)
[2021-09-23] MEDS ORDERED: RAPID SEQUENCE INTUBATION KIT NR ONE (00:21)
[2021-09-23] MEDS ORDERED: FENTANYL IVPB 500 MCG/100 ML BAG IVPB SCH (00:45)
[2021-09-23] MEDS ORDERED: PROPOFOL 1,000,000 MCG/100 ML VIAL IVPB SCH ×3 (00:45→13:15)
[2021-09-23] MEDS ORDERED: MIDAZOLAM HCL 2 MG/2 ML SINGLE DOSE VIAL ONE (01:09)
[2021-09-23] MEDS ORDERED: MIDAZOLAM 100 MG in SODIUM CHLORIDE 100 ML IVPB SCH (01:15)
[2021-09-23] MEDS ORDERED: FENTANYL NS IVPB 500 MCG/100 ML BAG IVPB SCH (01:36)
[2021-09-23] MEDS: MIDAZOLAM HCL 2 MG/2 ML SINGLE DOSE VIAL IVPUSH ONE ×2 (01:45→03:42)
[2021-09-23] MEDS ORDERED: methylPREDNISolone NA SUCC 40 MG/1 ML VIAL IVPUSH SCH ×2 (02:00→10:00)
[2021-09-23 02:04] LABS: COCAINE, UR NEGATIVE (NEGATIVE)
[2021-09-23 02:06] LABS: OPIATES, URI NEGATIVE (NEGATIVE); PHENCYCLIDINE,URINE NEGATIVE (NEGATIVE); URINE BARBITURATES NEGATIVE (NEGATIVE)
[2021-09-23 02:07] LABS: URINE AMPHETAMINES NEGATIVE (NEGATIVE)
[2021-09-23 02:47] LABS: METHADONE, UR NEGATIVE (NEGATIVE); URINE BENZODIAZEPINES POSITIVE (NEGATIVE)
[2021-09-23] MEDS ORDERED: AMPICILLIN NA/SULBACTAM NA 1.5 GM in SODIUM CHLORIDE 100 ML IVPB SCH ×2 (03:00→09:00)
[2021-09-23 03:13] LABS: ARTERIAL BLD GAS O2 SATURATION 99.8 % (95-98); ARTERIAL BLOOD GAS PO2 401.9 mmHg (80-100); ARTERIAL BLOOD GAS pH 7.312 (7.350-7.450)
[2021-09-23 03:17] LABS: VENT MODE A/C; VENT RATE 20
[2021-09-23] MEDS: SODIUM CHLORIDE 1,000 ML IV SCH (03:42)
[2021-09-23] MEDS ORDERED: INSULIN SLIDING SCALE (NOVOLOG) 1 VIAL SQ SCH (07:00)
[2021-09-23] MEDS: ALBUTEROL SO4 2.5/IPRATROPIUM 0.5 INH SOL 3 ML VIAL.NEB. NEB SCH ×4 (07:25→20:30)
[2021-09-23 07:34] LABS: BASO % 0.1 % (0-2.0); EOS % 0.1 % (0-4.5); HEMATOCRIT 35.9 % (35.4-49); LYMPH % 6.8 % (8-40); MCH 29.9 pg (25.7-33.7); MCHC 33.3 g/dl (32.0-35.9); MEAN CELL VOLUME 89.8 fl (80-96); MEAN PLT VOLUME 6.9 fl (7.5-11.1); MONO % 7.5 % (3.8-10.2); NEUT % 85.5 % (42.8-82.8); PLATELET COUNT 236 10^3/uL (134-434); RBC 3.99 M/mm3 (4.00-5.60); RDW 14.9 % (11.9-15.9); WHITE BLOOD COUNT 5.3 K/mm3 (4.0-10.0)
[2021-09-23 08:06] LABS: BLOOD UREA NITROGEN 8.5 mg/dL (7-18)
[2021-09-23 08:09] LABS: BILIRUBIN,TOTAL 0.6 mg/dL (0.2-1); CREATININE 0.6 mg/dL (0.55-1.3); PHOSPHOROUS 3.5 mg/dL (2.5-4.9); TOT PROT 6.1 g/dl (6.4-8.2)
[2021-09-23 08:11] LABS: MAGNESIUM 1.6 mg/dL (1.8-2.4)
[2021-09-23 08:21] LABS: ALBUMIN 2.4 g/dl (3.4-5.0)
[2021-09-23] MEDS ORDERED: MAGNESIUM 1GM/D5W 100ML - 100 ML IVPB IVPB ONE (08:45)
[2021-09-23] MEDS ORDERED: PT OWN MED DRAWER 7, Y5N ONE (09:19)
[2021-09-23] MEDS ORDERED: AMPICILLIN NA/SULBACTAM NA 1.5 GM VIAL ONE (09:20)
[2021-09-23] MEDS ORDERED: SODIUM CHLORIDE 100 ML IVPB ONE (09:21)
[2021-09-23] MEDS: MUPIROCIN 2% TOPICAL OINTMENT FOR DECOLONIZATION NS SCH ×2 (09:23→21:03)
[2021-09-23] MEDS: ENOXAPARIN NA (PORCINE) 40 MG/0.4 ML DISP.SYRIN SQ SCH (09:24)
[2021-09-23] MEDS ORDERED: ENOXAPARIN NA (PORCINE) 40 MG/0.4 ML DISP.SYRIN SQ SCH (10:00)
[2021-09-23 11:07] LABS: EPI CELLS 16 /uL (0-25.1); HYALINE CASTS 4 /uL (0-3.1); PH,URINE >= 9.0 (5.0-8.0); URINE APPEARANCE CLEAR; URINE BACTERIA 7 /uL (0-1359); URINE BILIRUBIN NEGATIVE (NEGATIVE); URINE COLOR YELLOW; URINE GLUCOSE (UA) NEGATIVE (NEGATIVE); URINE KETONE TRACE (NEGATIVE); URINE LEUK ESTERASE TRACE (NEGATIVE); URINE NITRITE NEGATIVE (NEGATIVE); URINE PROTEIN NEGATIVE (NEGATIVE); URINE RBC 52 /uL (0-23.9); URINE WBC 128 /uL (0-25.8)
[2021-09-23 11:13] LABS: ARTERIAL BLD GAS O2 SATURATION 97.7 % (95-98); ARTERIAL BLOOD GAS BASE EXCESS 6.1 mmol/L (-2-2); ARTERIAL BLOOD GAS pH 7.515 (7.350-7.450)
[2021-09-23 11:16] LABS: ALLENS TEST POSITIVE
[2021-09-23 11:17] LABS: VENT MODE A/C; VENT RATE 14
[2021-09-23 11:21] LABS: PT'S TEMP 98
[2021-09-23] MEDS: INSULIN SLIDING SCALE (NOVOLOG) 1 VIAL SQ SCH ×3 (12:46→21:03)
[2021-09-23 14:59] LABS: ARTERIAL BLD GAS O2 SATURATION 97.7 % (95-98); ARTERIAL BLOOD GAS BASE EXCESS 4.3 mmol/L (-2-2); ARTERIAL BLOOD GAS PO2 97.7 mmHg (80-100); ARTERIAL BLOOD GAS pH 7.462 (7.350-7.450)
[2021-09-23 15:02] LABS: ALLENS TEST POSITIVE
[2021-09-23 15:03] LABS: VENT MODE A/C; VENT RATE 30
[2021-09-23] MEDS ORDERED: DEXMEDETOMIDINE IN 0.9 % NACL 400 MCG/100 ML VIAL IVPB SCH (16:00)
[2021-09-23] MEDS: CHLORHEXIDINE GLUCONATE 4% CLEANSER FOR DECOLONIZATION TP SCH (21:03)
[2021-09-23] MEDS: levETIRAcetam 500 MG/5 ML INJECTION VIAL IVPB SCH (21:03)
[2021-09-24] MEDS: SODIUM CHLORIDE 1,000 ML IV SCH (06:23)
[2021-09-24] MEDS: INSULIN SLIDING SCALE (NOVOLOG) 1 VIAL SQ SCH ×4 (06:24→21:13)
[2021-09-24] MEDS: ALBUTEROL SO4 2.5/IPRATROPIUM 0.5 INH SOL 3 ML VIAL.NEB. NEB SCH ×4 (07:40→20:15)
[2021-09-24 07:56] LABS: BASO % 0.4 % (0-2.0); EOS % 0.8 % (0-4.5); HEMATOCRIT 38.6 % (35.4-49); HEMOGLOBIN 12.8 GM/dL (11.7-16.9); LYMPH % 19.5 % (8-40); MCH 29.7 pg (25.7-33.7); MCHC 33.2 g/dl (32.0-35.9); MEAN CELL VOLUME 89.3 fl (80-96); MEAN PLT VOLUME 7.3 fl (7.5-11.1); MONO % 13.7 % (3.8-10.2); NEUT % 65.6 % (42.8-82.8); PLATELET COUNT 251 10^3/uL (134-434); RBC 4.32 M/mm3 (4.00-5.60); RDW 14.7 % (11.9-15.9); WHITE BLOOD COUNT 6.3 K/mm3 (4.0-10.0)
[2021-09-24 08:12] LABS: ALBUMIN 2.3 g/dl (3.4-5.0)
[2021-09-24 08:13] LABS: BLOOD UREA NITROGEN 13.4 mg/dL (7-18)
[2021-09-24 08:15] LABS: CREATININE 0.5 mg/dL (0.55-1.3); PHOSPHOROUS 3.7 mg/dL (2.5-4.9)
[2021-09-24 08:16] LABS: BILIRUBIN,TOTAL 0.6 mg/dL (0.2-1)
[2021-09-24 08:17] LABS: TOT PROT 5.6 g/dl (6.4-8.2)
[2021-09-24] MEDS: levETIRAcetam 500 MG/5 ML INJECTION VIAL IVPB SCH ×2 (09:48→21:13)
[2021-09-24] MEDS: MUPIROCIN 2% TOPICAL OINTMENT FOR DECOLONIZATION NS SCH ×2 (09:48→21:13)
[2021-09-24] MEDS: ENOXAPARIN NA (PORCINE) 40 MG/0.4 ML DISP.SYRIN SQ SCH (09:49)
[2021-09-24] MEDS: CHLORHEXIDINE GLUCONATE 4% CLEANSER FOR DECOLONIZATION TP SCH (21:13)
[2021-09-24] MEDS: levETIRAcetam 500 MG TABLET (FP) PO SCH (22:17)
[2021-09-25] MEDS: SODIUM CHLORIDE 1,000 ML IV SCH (04:07)
[2021-09-25] MEDS: ALBUTEROL SO4 2.5/IPRATROPIUM 0.5 INH SOL 3 ML VIAL.NEB. NEB SCH ×4 (07:45→20:40)
[2021-09-25] MEDS ORDERED: PT OWN MED DRAWER 7, Y5N ONE (08:36)
[2021-09-25] MEDS: levETIRAcetam 500 MG TABLET (FP) PO SCH ×2 (09:12→23:00)
[2021-09-25] MEDS: ENOXAPARIN NA (PORCINE) 40 MG/0.4 ML DISP.SYRIN SQ SCH (09:12)
[2021-09-25] MEDS: MUPIROCIN 2% TOPICAL OINTMENT FOR DECOLONIZATION NS SCH ×2 (10:00→22:02)
[2021-09-25] MEDS: INSULIN SLIDING SCALE (NOVOLOG) 1 VIAL SQ SCH (10:55)
[2021-09-25] MEDS ORDERED: ALBUTEROL SO4 2.5/IPRATROPIUM 0.5 INH SOL 3 ML VIAL.NEB. NEB PRN (13:16)
[2021-09-25] MEDS: FOLIC ACID 1 MG TABLET (FP) PO SCH (15:00)
[2021-09-25] MEDS: THIAMINE HCL 100 MG TABLET (FP) PO SCH (15:09)
[2021-09-25] MEDS: CHLORHEXIDINE GLUCONATE 4% CLEANSER FOR DECOLONIZATION TP SCH (22:02)
[2021-09-26] MEDS: INSULIN SLIDING SCALE (NOVOLOG) 1 VIAL SQ SCH ×5 (01:18→23:33)
[2021-09-26] MEDS: ALBUTEROL SO4 2.5/IPRATROPIUM 0.5 INH SOL 3 ML VIAL.NEB. NEB SCH ×4 (07:50→20:34)
[2021-09-26] MEDS ORDERED: PT OWN MED DRAWER 7, Y5N ONE (09:47)
[2021-09-26] MEDS: THIAMINE HCL 100 MG TABLET (FP) PO SCH (10:09)
[2021-09-26] MEDS: levETIRAcetam 500 MG TABLET (FP) PO SCH ×2 (10:09→23:02)
[2021-09-26] MEDS: MUPIROCIN 2% TOPICAL OINTMENT FOR DECOLONIZATION NS SCH ×2 (10:09→23:02)
[2021-09-26] MEDS: FOLIC ACID 1 MG TABLET (FP) PO SCH (10:09)
[2021-09-26] MEDS: ENOXAPARIN NA (PORCINE) 40 MG/0.4 ML DISP.SYRIN SQ SCH (10:10)
[2021-09-26] MEDS ORDERED: MELATONIN 1 MG TABLET PO ONE (21:17)
[2021-09-26] MEDS ORDERED: THIAMINE HCL 200 MG/2 ML VIAL IVPB SCH (22:00)
[2021-09-26] MEDS: CHLORHEXIDINE GLUCONATE 4% CLEANSER FOR DECOLONIZATION TP SCH (23:02)
[2021-09-27] MEDS: ALBUTEROL SO4 2.5/IPRATROPIUM 0.5 INH SOL 3 ML VIAL.NEB. NEB SCH ×4 (07:45→20:32)
[2021-09-27] MEDS: INSULIN SLIDING SCALE (NOVOLOG) 1 VIAL SQ SCH ×4 (08:00→23:32)
[2021-09-27] MEDS ORDERED: PANTOPRAZOLE SODIUM 40 MG VIAL IVPUSH ONE ×2 (09:55→22:27)
[2021-09-27] MEDS ORDERED: PT OWN MED DRAWER 7, Y5N ONE (10:26)
[2021-09-27] MEDS: levETIRAcetam 500 MG TABLET (FP) PO SCH ×2 (10:41→23:33)
[2021-09-27] MEDS: FOLIC ACID 1 MG TABLET (FP) PO SCH (10:42)
[2021-09-27] MEDS: MUPIROCIN 2% TOPICAL OINTMENT FOR DECOLONIZATION NS SCH ×2 (10:42→23:32)
[2021-09-27] MEDS: ENOXAPARIN NA (PORCINE) 40 MG/0.4 ML DISP.SYRIN SQ SCH (10:50)
[2021-09-27 11:39] LABS: BASO % 0.5 % (0-2.0); EOS % 2.8 % (0-4.5); HEMATOCRIT 33.3 % (35.4-49); HEMOGLOBIN 10.8 GM/dL (11.7-16.9); LYMPH % 10.6 % (8-40); MCH 29.2 pg (25.7-33.7); MCHC 32.5 g/dl (32.0-35.9); MEAN PLT VOLUME 6.9 fl (7.5-11.1); MONO % 13.2 % (3.8-10.2); NEUT % 72.9 % (42.8-82.8); PLATELET COUNT 223 10^3/uL (134-434); RDW 14.8 % (11.9-15.9); WHITE BLOOD COUNT 6.8 K/mm3 (4.0-10.0)
[2021-09-27 12:52] LABS: LACTIC ACID 2.8 mmol/L (0.4-2.0)
[2021-09-27 13:32] LABS: BLOOD UREA NITROGEN 12.4 mg/dL (7-18); CALCIUM 8.3 mg/dL (8.5-10.1); MAGNESIUM 1.9 mg/dL (1.8-2.4)
[2021-09-27 13:35] LABS: CREATININE 0.6 mg/dL (0.55-1.3); PHOSPHOROUS 3.8 mg/dL (2.5-4.9)
[2021-09-27] MEDS ORDERED: THIAMINE HCL 200 MG/2 ML VIAL IVPB SCH (14:00)
[2021-09-27] MEDS: SODIUM CHLORIDE 1,000 ML IV SCH (14:41)
[2021-09-27] MEDS: THIAMINE HCL 200 MG/2 ML VIAL IVPB SCH (14:41)
[2021-09-27] MEDS ORDERED: QUEtiapine FUMARATE 25 MG TABLET PO PRN (17:04)
[2021-09-27] MEDS ORDERED: levETIRAcetam 500 MG/5 ML INJECTION VIAL IVPB ONE (22:27)
[2021-09-27] MEDS: CHLORHEXIDINE GLUCONATE 4% CLEANSER FOR DECOLONIZATION TP SCH (23:32)
[2021-09-27] MEDS: PANTOPRAZOLE 40 MG TABLET PO SCH (23:33)
[2021-09-28] MEDS: THIAMINE HCL 200 MG/2 ML VIAL IVPB SCH ×4 (00:15→21:27)
[2021-09-28] MEDS: INSULIN SLIDING SCALE (NOVOLOG) 1 VIAL SQ SCH ×4 (08:35→22:00)
[2021-09-28] MEDS: ALBUTEROL SO4 2.5/IPRATROPIUM 0.5 INH SOL 3 ML VIAL.NEB. NEB SCH ×4 (09:04→20:50)
[2021-09-28] MEDS: PANTOPRAZOLE 40 MG TABLET PO SCH ×2 (10:50→21:28)
[2021-09-28] MEDS: FOLIC ACID 1 MG TABLET (FP) PO SCH (10:50)
[2021-09-28] MEDS: levETIRAcetam 500 MG TABLET (FP) PO SCH ×2 (10:50→21:28)
[2021-09-28] MEDS: ENOXAPARIN NA (PORCINE) 40 MG/0.4 ML DISP.SYRIN SQ SCH (11:03)
[2021-09-28 13:22] VITALS: BMI 21.2
[2021-09-28] MEDS: SODIUM CHLORIDE 1,000 ML IV SCH (15:28)
[2021-09-29] MEDS: INSULIN SLIDING SCALE (NOVOLOG) 1 VIAL SQ SCH ×3 (07:02→22:40)
[2021-09-29] MEDS: THIAMINE HCL 200 MG/2 ML VIAL IVPB SCH ×3 (07:04→21:35)
[2021-09-29] MEDS: ALBUTEROL SO4 2.5/IPRATROPIUM 0.5 INH SOL 3 ML VIAL.NEB. NEB SCH ×4 (09:00→21:03)
[2021-09-29] MEDS: PANTOPRAZOLE 40 MG TABLET PO SCH ×2 (09:40→22:40)
[2021-09-29] MEDS: levETIRAcetam 500 MG TABLET (FP) PO SCH ×2 (09:40→22:40)
[2021-09-29] MEDS: ENOXAPARIN NA (PORCINE) 40 MG/0.4 ML DISP.SYRIN SQ SCH (09:41)
[2021-09-29] MEDS: MULTIVITAMINS (DAILY MVI) TABLET (FP) PO SCH (09:41)
[2021-09-29] MEDS: FOLIC ACID 1 MG TABLET (FP) PO SCH (09:42)
[2021-09-29] MEDS: LOSARTAN POTASSIUM 50 MG TABLET PO SCH (16:45)
[2021-09-29] MEDS: SODIUM CHLORIDE 1,000 ML IV SCH (16:46)
[2021-09-29] MEDS: CHLORHEXIDINE GLUCONATE 4% CLEANSER FOR DECOLONIZATION TP SCH (19:16)
[2021-09-29] MEDS ORDERED: QUEtiapine FUMARATE 25 MG TABLET PO ONE (21:30)
[2021-09-30] MEDS: THIAMINE HCL 200 MG/2 ML VIAL IVPB SCH (06:19)
[2021-09-30] MEDS: INSULIN SLIDING SCALE (NOVOLOG) 1 VIAL SQ SCH (07:04)
[2021-09-30] MEDS: ALBUTEROL SO4 2.5/IPRATROPIUM 0.5 INH SOL 3 ML VIAL.NEB. NEB SCH ×3 (07:20→15:34)
[2021-09-30] MEDS: ENOXAPARIN NA (PORCINE) 40 MG/0.4 ML DISP.SYRIN SQ SCH (10:42)
[2021-09-30] MEDS: levETIRAcetam 500 MG TABLET (FP) PO SCH (10:43)
[2021-09-30] MEDS: LOSARTAN POTASSIUM 50 MG TABLET PO SCH (10:43)
[2021-09-30] MEDS: PANTOPRAZOLE 40 MG TABLET PO SCH (10:43)
[2021-09-30] MEDS: MULTIVITAMINS (DAILY MVI) TABLET (FP) PO SCH (10:43)
[2021-09-30] MEDS: FOLIC ACID 1 MG TABLET (FP) PO SCH (10:44)
[2021-09-30 15:54] VITALS: BP 142/86; PULSE 86; TEMP 98
[2021-09-30] MEDS ORDERED: QUEtiapine FUMARATE 25 MG TABLET PO ONE (21:13)
== END 2021-09-30 16:33 | disposition other institution (70) | DRG 917 ==
LOC: JER 18:29 → UNDOADMIN 22:03 → JERBED 22:03 → JICU 09-23 02:35 → J2W 09-24 23:45
PROVIDERS: ATTEND Internal Medicine
PROC: 5A1945Z Respiratory Ventilation, 24-96 Consecutive Hours (ICD-10-PCS; principal; 2021-09-23)
PROC: 0BH17EZ Insertion of Endotracheal Airway into Trachea, Via Natural or Artificial Opening (ICD-10-PCS; 2021-09-23)
DX: T42.4X4A Poisoning by benzodiazepines, undetermined, initial encounter (principal); J18.9 Pneumonia, unspecified organism; J96.01 Acute respiratory failure with hypoxia; J96.02 Acute respiratory failure with hypercapnia; J44.1 Chronic obstructive pulmonary disease with (acute) exacerbation; F10.239 Alcohol dependence with withdrawal, unspecified; E87.2 Acidosis; E87.1 Hypo-osmolality and hyponatremia; J44.0 Chronic obstructive pulmonary disease with (acute) lower respiratory infection; J98.11 Atelectasis; Y92.89 Other specified places as the place of occurrence of the external cause; G40.909 Epilepsy, unspecified, not intractable, without status epilepticus; I10 Essential (primary) hypertension; J45.20 Mild intermittent asthma, uncomplicated; F17.210 Nicotine dependence, cigarettes, uncomplicated; F12.90 Cannabis use, unspecified, uncomplicated; E87.5 Hyperkalemia; E11.9 Type 2 diabetes mellitus without complications; G62.9 Polyneuropathy, unspecified
CPT/HCPCS: 31500; 36415; 36600; 70450-TC; 71045-TC-FY; 74176-TC; 80048; 80053; 80177; 80307; 81003; 82550; 82553; 82607; 82728; 82803; 82962; 83605; 83615; 83735; 84100; 84439; 84443; 84484; 85025; 85610; 85730; 86140; 86780; 87040; 87070; 87086; 87205; 87804; 87807; 93005; 93010; 94002; 94640; 97116-GP; 97163-GP; 99291; C9803; U0003; U0005

== ENCOUNTER 2021-09-30 16:52 | Inpatient (IN) | payer OTHER ==
[2021-09-30] MEDS ORDERED: MAGNESIUM CITRATE 300 ML BOTTLE PO PRN (19:20)
[2021-09-30] MEDS ORDERED: MAGNESIUM HYDROX 2400MG/30ML ORAL SUSPENSION 30 ML CUP PO PRN (19:20)
[2021-09-30] MEDS ORDERED: P-EPHED 60MG/TRIPROLIDI 2.5MG TABLET PO PRN (19:20)
[2021-09-30] MEDS ORDERED: MAG HYDROX/AL HYDROX/SIMETH 30 ML UNIT-DOSE CUP PO PRN (19:20)
[2021-09-30] MEDS ORDERED: LOPERAMIDE HCL 2 MG CAPSULE PO PRN (19:20)
[2021-09-30] MEDS ORDERED: guaiFENesin 200 MG/10 ML 10 ML UNIT-DOSE CUPS PO PRN (19:20)
[2021-09-30] MEDS ORDERED: ACETAMINOPHEN 325 MG TABLET (FP) PO PRN (19:20)
[2021-09-30 21:12] VITALS: BMI 27.2
[2021-09-30] MEDS ORDERED: PATIENT'S OWN MEDICATION (NON-FORMULARY) (Levetiracetam [Levetiracetam] 750 MG Tablet) PO SCH (22:00)
[2021-09-30] MEDS ORDERED: THIAMINE HCL 100 MG TABLET (FP) PO SCH (22:00)
[2021-09-30] MEDS: THIAMINE HCL 100 MG TABLET (FP) PO SCH (22:19)
[2021-09-30] MEDS: MELATONIN 5 MG TABLETS PO SCH (22:19)
[2021-09-30] MEDS: levETIRAcetam 250 MG TABLET PO SCH (22:20)
[2021-10-01] MEDS: IBUPROFEN 400 MG TABLET (FP) PO PRN (06:23)
[2021-10-01] MEDS: LOSARTAN POTASSIUM 50 MG TABLET PO SCH (06:37)
[2021-10-01] MEDS ORDERED: PT OWN MED DRAWER 7, Y5N ONE (08:35)
[2021-10-01] MEDS: PRENATAL VITAMINS W/ FOLIC ACID TABLET (FP) PO SCH (09:43)
[2021-10-01] MEDS: FOLIC ACID 1 MG TABLET (FP) PO SCH (09:43)
[2021-10-01] MEDS: THIAMINE HCL 100 MG TABLET (FP) PO SCH ×2 (09:43→21:36)
[2021-10-01] MEDS ORDERED: LOSARTAN POTASSIUM 50 MG TABLET PO SCH (10:00)
[2021-10-01] MEDS: levETIRAcetam 250 MG TABLET PO SCH ×2 (10:34→21:36)
[2021-10-01 12:07] LABS: PH,URINE 7.5 (5.0-8.0); URINE APPEARANCE CLEAR; URINE BILIRUBIN NEGATIVE (NEGATIVE); URINE COLOR YELLOW; URINE GLUCOSE (UA) NEGATIVE (NEGATIVE); URINE KETONE NEGATIVE (NEGATIVE); URINE LEUK ESTERASE NEGATIVE (NEGATIVE); URINE NITRITE NEGATIVE (NEGATIVE); URINE PROTEIN NEGATIVE (NEGATIVE); URINE UROBILINOGEN 0.2 mg/dL (0.2-1.0)
[2021-10-01] MEDS: NICOTINE 10 MG CARTRIDGE (INHALER) IH PRN (19:02)
[2021-10-01] MEDS: MELATONIN 5 MG TABLETS PO SCH (21:36)
[2021-10-01] MEDS ORDERED: QUEtiapine FUMARATE 50 MG TABLET PO SCH (22:00)
[2021-10-02] MEDS: ALBUTEROL SO4 HFA INHALER IH PRN ×2 (02:16→21:18)
[2021-10-02] MEDS: IBUPROFEN 400 MG TABLET (FP) PO PRN (03:33)
[2021-10-02] MEDS: LOSARTAN POTASSIUM 50 MG TABLET PO SCH (06:15)
[2021-10-02] MEDS: THIAMINE HCL 100 MG TABLET (FP) PO SCH ×2 (11:04→21:18)
[2021-10-02] MEDS: FOLIC ACID 1 MG TABLET (FP) PO SCH (11:04)
[2021-10-02] MEDS: NICOTINE 10 MG CARTRIDGE (INHALER) IH PRN (11:05)
[2021-10-02] MEDS: levETIRAcetam 250 MG TABLET PO SCH ×2 (11:05→21:19)
[2021-10-02] MEDS: PRENATAL VITAMINS W/ FOLIC ACID TABLET (FP) PO SCH (11:05)
[2021-10-02] MEDS ORDERED: RISPERIDONE MICROSPHERES 25 MG/2 ML VIAL IM SCH (11:30)
[2021-10-02 12:35] LABS: HEMATOCRIT 37.8 % (35.4-49); HEMOGLOBIN 12.2 GM/dL (11.7-16.9); MCH 28.8 pg (25.7-33.7); MCHC 32.4 g/dl (32.0-35.9); MEAN CELL VOLUME 89.1 fl (80-96); MEAN PLT VOLUME 7.7 fl (7.5-11.1); PLATELET COUNT 284 10^3/uL (134-434); RBC 4.24 M/mm3 (4.00-5.60); RDW 15.2 % (11.9-15.9)
[2021-10-02 12:45] LABS: BLOOD UREA NITROGEN 18.2 mg/dL (7-18)
[2021-10-02 12:46] LABS: CALCIUM 9.3 mg/dL (8.5-10.1)
[2021-10-02 12:48] LABS: CREATININE 0.6 mg/dL (0.55-1.3)
[2021-10-02 12:49] LABS: BILIRUBIN,TOTAL 0.7 mg/dL (0.2-1)
[2021-10-02 12:54] LABS: ALBUMIN 3.6 g/dl (3.4-5.0); TOT PROT 8.1 g/dl (6.4-8.2)
[2021-10-02] MEDS: MIRTAZAPINE 15 MG TABLET (FP) PO SCH (21:19)
[2021-10-03] MEDS: LOSARTAN POTASSIUM 50 MG TABLET PO SCH (06:04)
[2021-10-03] MEDS: THIAMINE HCL 100 MG TABLET (FP) PO SCH ×2 (09:23→21:17)
[2021-10-03] MEDS: FOLIC ACID 1 MG TABLET (FP) PO SCH (09:23)
[2021-10-03] MEDS: PRENATAL VITAMINS W/ FOLIC ACID TABLET (FP) PO SCH (09:23)
[2021-10-03] MEDS: levETIRAcetam 250 MG TABLET PO SCH ×2 (10:20→21:17)
[2021-10-03] MEDS ORDERED: PT OWN MED DRAWER 7, Y5N ONE (11:41)
[2021-10-03] MEDS: RISPERIDONE MICROSPHERES 25 MG/2 ML VIAL IM SCH (12:40)
[2021-10-03] MEDS: ALBUTEROL SO4 HFA INHALER IH PRN ×2 (13:59→21:19)
[2021-10-03] MEDS: MIRTAZAPINE 15 MG TABLET (FP) PO SCH (21:18)
[2021-10-04] MEDS: NICOTINE 10 MG CARTRIDGE (INHALER) IH PRN (06:20)
[2021-10-04] MEDS: LOSARTAN POTASSIUM 50 MG TABLET PO SCH (06:20)
[2021-10-04] MEDS: levETIRAcetam 250 MG TABLET PO SCH ×2 (10:10→21:09)
[2021-10-04] MEDS: THIAMINE HCL 100 MG TABLET (FP) PO SCH ×2 (10:10→21:10)
[2021-10-04] MEDS: FOLIC ACID 1 MG TABLET (FP) PO SCH (10:10)
[2021-10-04] MEDS: PRENATAL VITAMINS W/ FOLIC ACID TABLET (FP) PO SCH (10:10)
[2021-10-04] MEDS: RISPERIDONE MICROSPHERES 25 MG/2 ML VIAL IM SCH (13:13)
[2021-10-04] MEDS: MIRTAZAPINE 15 MG TABLET (FP) PO SCH (21:10)
[2021-10-05] MEDS: ALBUTEROL SO4 HFA INHALER IH PRN (05:56)
[2021-10-05] MEDS: LOSARTAN POTASSIUM 50 MG TABLET PO SCH (06:14)
[2021-10-05 06:53] VITALS: BP 170/96; PULSE 70; TEMP 98.4
[2021-10-05] MEDS: PRENATAL VITAMINS W/ FOLIC ACID TABLET (FP) PO SCH (10:42)
[2021-10-05] MEDS: FOLIC ACID 1 MG TABLET (FP) PO SCH (10:42)
[2021-10-05] MEDS: THIAMINE HCL 100 MG TABLET (FP) PO SCH (10:42)
[2021-10-05] MEDS: levETIRAcetam 250 MG TABLET PO SCH (10:42)
[2021-10-05] MEDS: RISPERIDONE MICROSPHERES 25 MG/2 ML VIAL IM SCH (14:24)
[2021-10-16] MEDS ORDERED: RISPERIDONE MICROSPHERES 25 MG/2 ML VIAL IM SCH (10:00)
== END 2021-10-05 15:40 | disposition left against medical advice (07) | DRG 894 ==
LOC: YASAS 16:52 → Y3W 20:24
PROVIDERS: ADMIT Allergy & Immunology; ATTEND Allergy & Immunology
PROC: HZ42ZZZ Group Counseling for Substance Abuse Treatment, Cognitive-Behavioral (ICD-10-PCS; principal; 2021-09-30)
DX: F10.20 Alcohol dependence, uncomplicated (principal); F14.20 Cocaine dependence, uncomplicated; F16.20 Hallucinogen dependence, uncomplicated; F20.0 Paranoid schizophrenia; F12.10 Cannabis abuse, uncomplicated; F17.210 Nicotine dependence, cigarettes, uncomplicated; I10 Essential (primary) hypertension; E11.9 Type 2 diabetes mellitus without complications; G40.909 Epilepsy, unspecified, not intractable, without status epilepticus; J44.9 Chronic obstructive pulmonary disease, unspecified; Z86.73 Personal history of transient ischemic attack (TIA), and cerebral infarction without residual deficits; Z88.8 Allergy status to other drugs, medicaments and biological substances; Z91.013 Allergy to seafood
CPT/HCPCS: 36415; 80053; 81003; 82962; 85027; 86780; C9803; U0003; U0005